=== PATIENT | male | born 1970 | race Caucasian/White ===

== ENCOUNTER 2021-12-22 03:04 | Emergency (ER) | payer MEDICAID, SELFPAY ==
--- NOTE | 2021-12-22 | XR_ITS ---
Patient: SAGAR HERNANDEZ Facility:?[facility] Patient ID:[id number] Site Patient ID:?[id number] Study:?XRay-Hip RT HIP AND PELVIS-12/22/2021 4:00:28 AM Ordering Physician:RAJESH Final Report: INDICATION: Pain. COMPARISON: None available. TECHNIQUE: The right hip was examined with AP and cross-table lateral views. An AP view of the pelvis is obtained for a total of three views. FINDINGS: There is no sign of fracture or dislocation of the right hip. The right femoral head and acetabulum are in anatomic alignment. There is no sign of degenerative disease of the right hip. The left hip is unremarkable. The SI joints and pubic symphysis are normal in appearance. The rest of the bony pelvis and soft tissues are normal in appearance. IMPRESSION: Normal right hip and pelvis. Dictated by Brian Christopher MD @ 12/22/2021 5:33:17 AM Signed by:?Brian Christopher MD @12/22/2021 5:33:17 AM (Electronic Signature)
--- NOTE | 2021-12-22 | XR_ITS ---
Patient: SAGAR HERNANDEZ Facility:?[facility] Patient ID:?[id number] Site Patient ID:?[id number] Study:?XRay-Spine LUMBAR-12/22/2021 4:01:55 AM Ordering Physician:RAJESH Final Report: HISTORY: Low-back pain. COMPARISON: None available. FINDINGS: The lumbar spine was examined with AP and lateral views for a total of two views. There is mild anterior wedging of the L4 vertebral body. This could be a mild compression fracture of uncertain age. There is no paraspinous soft tissue swelling to suggest that this is an acute fracture. The rest of the vertebral bodies are normal in height and they are in anatomic alignment. The disc spaces are normal in height. The visualized bony pelvis and bowel gas pattern are normal in appearance. IMPRESSION: Mild anterior wedging of the L4 vertebral body, possible mild compression fracture of indeterminate age. Dictated by Brian Christopher MD @ 12/22/2021 5:35:08 AM Signed by:?Brian Christopher MD @12/22/2021 5:35:08 AM (Electronic Signature)
[2021-12-22 04:45] VITALS: BP 159/90; PULSE 94; RESP 16; TEMP 36.6; O2SAT 98; BMI 43.0
--- NOTE | 2021-12-22 06:50 | ED.LOWEXIN ---
HPI - Extremity Injury (Lower) General Date Seen: 12/22/21 Chief Complaint: Hip Injury/Pain Source: patient, RN notes reviewed and old records reviewed Mode of arrival: ambulatory Limitations: no limitations History of Present Illness HPI Narrative: Joseph is a very pleasant 51-year-old gentleman with diet-controlled diabetes, hyperlipidemia, obesity who comes to the emergency room for evaluation regarding right hip pain. Patient notes the onset of right hip pain on a ThursdayDecember 20. He cannot recall any specific injury including fall that may have caused this although he states that 2 days previous to that [place] walks more than he has walked in the long time. He shows the pain to be in the right buttock and upper hip. He states that when he is at rest and slightly sitting up he has no pain. But with any weight-bearing the pain increases to 7/10. He has not taken anything for this pain. He notes that earlier in the evening his grandson touch does leg any felt like it did not feel the same as when he would touch the left side. He has not lost bowel or bladder control. He has ongoing issues with bladder emptying and dribbling but this is not occurring at the same time as this injury. Patient denies a fever. He does no radiation of the pain into the groin when walking. Occasionally he can feel a sensation down his right leg but does not describe it as painful. He states that the bottom of both of his feet are affected with peripheral neuropathy. Related Data Home Medications Medication Instructions Recorded Confirmed No Known Home Medications 12/22/21 12/22/21 Allergies Allergy/AdvReac Type Severity Reaction Status Date / Time Penicillin Allergy Intermediate unknown Uncoded 12/12/21 08:18 Acetaminophen Allergy Unknown nausea Uncoded 12/12/21 08:18 Codeine Allergy Unknown upset Uncoded 12/12/21 08:18 stomach Hydrocodone Allergy Unknown nausea Uncoded 12/12/21 08:18 Tetanus toxoid Allergy Unknown unknown Uncoded 12/12/21 08:18 Review of Systems Status of ROS: Reports: 10 or more systems reviewed and unremarkable except as noted in History and below Const: Denies: fever or chills ENMT: Denies: difficulty swallowing Cardio: Denies: chest pain Resp: Reports: other (Sleep apnea) GI: Denies: abdominal pain, nausea, vomiting, diarrhea, constipation or difficulty swallowing : Reports: urinary urgency (Chronic); Denies: painful urination Musculo: Denies: back pain [facility] Medical History Diabetes type 2, controlled History of attention deficit hyperactivity disorder (ADHD) History of depression History of migraine headaches History of renal calculi Surgical History History of arthroscopy of left knee History of foot surgery History of open reduction and internal fixation (ORIF) procedure (2006) Family History Other Diabetes Social History Smoking Status: Current some day smoker Do you use any of these nicotine containing products: Vaping Products How often do you have a drink containing alcohol: monthly or less AUDIT-C Alcohol total score: 1 Non-prescribed substance use: marijuana (any form) Exam Narrative: Exam Narrative: Patient is alert and oriented. Very pleasant gentleman. Oral cavity with moist mucous membranes Heart with regular rate and rhythm. Lungs are clear to auscultation. Abdomen is obese soft no tenderness. Palpation over the right hip superior to the greater trochanter shows discomfort. No pain with palpation over lumbar spine. Straight leg raise is without discomfort however rotation of the hip as well as abduction of the hip increases pain. Distally patient has full strength and motor at the hip flexors knee extensors knee flexors ankle and great toe Tan and plantar flexion. Const: Vital Signs, click to edit/add: Vital Signs - 24 hr 12/22/21 04:45 Temperature 97.8 F Pulse Rate [Left P ulse Oximeter] 94 Respiratory Rate 16 Blood Pressure [Le ft Upper Arm] 159/90 H Pulse Oximetry 98 Oxygen Delivery Me thod Room Air Documenting provider has reviewed patient's vital signs: yes Course Vital Signs Vital signs: Initial Vital Signs Temperature 97.8 F 12/22/21 04:45 Temperature Source Temporal Artery Scan 12/22/21 04:45 Pulse Rate 94 12/22/21 04:45 Pulse Rhythm 12/22/21 04:45 Respiratory Rate 16 12/22/21 04:45 Blood Pressure 159/90 H 12/22/21 04:45 Blood Pressure Mean 113 12/22/21 04:45 Blood Pressure Position Sitting 12/22/21 04:45 Pulse Oximetry 98 12/22/21 04:45 Oxygen Delivery Method 12/22/21 04:45 Vital Signs Temperature 97.8 F 12/22/21 04:45 Pulse Rate 94 12/22/21 04:45 Respiratory Rate 16 12/22/21 04:45 Blood Pressure 159/90 H 12/22/21 04:45 Pulse Oximetry 98 12/22/21 04:45 Oxygen Delivery Method 12/22/21 04:45 Temperature 97.8 F 12/22/21 04:45 Pulse Rate 94 12/22/21 04:45 Respiratory Rate 16 12/22/21 04:45 Blood Pressure 159/90 H 12/22/21 04:45 Pulse Oximetry 98 12/22/21 04:45 Oxygen Delivery Method 12/22/21 04:45 MDM - Extremity Injury (Lower) MDM Narrative Medical decision making narrative: 1. Right hip pain-this appears to be muscular but cannot rule out possibility of joint pain given patient's increased discomfort with standing. X-rays at this time are reassuring with no evidence of acute findings. Will treat patient's pain with a 3 day course of prednisone 20 mg p.o. b.i.d.. He is aware that his blood sugars will likely rise with this medication. Will also give him a small number of [place] tablets so that he is able to sleep. [place] 5/325 1-2 PE 0 q.4-6 hours p.r.n. 6. With no refills via [email or web address] med[facility]. 2. Disposition-patient is discharged and is instructed to follow-up with his primary MD. He may need physical therapy or if he has worsening symptoms an MRI. If he has had the sudden onset of fever chills vomiting and increasing pain he will return here to the emergency room. Note radiological read was delayed and done after patient departure. Questionable L4 mild compression fracture. Patient has no back pain and no recent injury. He has palpable discomfort over the right buttock and superior hip area. Do not think this discomfort is related to a potential compression fracture. Medical Records Attestation: I reviewed the patient's medical records. Imaging Data Right hip, pelvis, lumbar spine: Attestation: I have reviewed the pertinent imaging results. My impression: No acute findings Radiologist's impression: Normal right hip and pelvis. The lumbar spine was examined with AP and lateral views for a total of two views. There is mild anterior wedging of the L4 vertebral body. This could be a mild compression fracture of uncertain age. There is no paraspinous soft tissue swelling to suggest that this is an acute fracture. The rest of the vertebral bodies are normal in height and they are in anatomic alignment. The disc spaces are normal in height. The visualized bony pelvis and bowel gas pattern are normal in appearance. IMPRESSION: Mild anterior wedging of the L4 vertebral body, possible mild compression fracture of indeterminate age. Discharge Plan Discharge Prescriptions: No Action No Known Home Medications Follow Up/Referrals: Mitul Wayne MD [Primary Care Provider] -
== END 2021-12-22 04:50 | disposition home or self-care (01) ==
PROVIDERS: Emergency Provider Family Medicine; PCP Family Medicine
DX: M25.551 Pain in right hip (principal); E13.42 Other specified diabetes mellitus with diabetic polyneuropathy
CPT/HCPCS: 72100; 73502; 99283; 99284

== ENCOUNTER 2022-01-06 13:35 | Outpatient (CLI) | payer MEDICAID, SELFPAY ==
[2022-01-06] MEDS: PERFLUTREN LIPID MICROSPHERES 2 ML VIAL IV (15:47)
== END 2022-01-06 13:36 | disposition home or self-care (01) ==
PROVIDERS: PCP Family Medicine; Visit Provider Internal Medicine Cardiovascular Disease
DX: R01.1 Cardiac murmur, unspecified (principal); I35.1 Nonrheumatic aortic (valve) insufficiency; I34.0 Nonrheumatic mitral (valve) insufficiency
CPT/HCPCS: 93306; Q9957

== ENCOUNTER 2022-02-21 10:49 | Outpatient (CLI) | payer MEDICAID, SELFPAY ==
[2022-02-21 11:50] LABS: Creatinine Urine 53.3 mg/dL
[2022-02-21 11:54] LABS: Microalbumin Creatinine Ratio 10 mg/g (0-30); Microalbumin Urine 1 mg/dL
== END 2022-02-21 10:50 | disposition home or self-care (01) ==
PROVIDERS: PCP Family Medicine; Visit Provider Family Medicine
DX: E11.9 Type 2 diabetes mellitus without complications (principal); E66.01 Morbid (severe) obesity due to excess calories; F41.9 Anxiety disorder, unspecified
CPT/HCPCS: 82043; 82570

== ENCOUNTER 2022-02-27 10:51 | Outpatient (CLI) | payer MEDICAID, SELFPAY ==
[2022-02-27 16:48] LABS: Albumin* 4.8 g/dL (3.3-5.0); Chloride* 104 mmol/L (96-114); Potassium* 4.7 mmol/L (3.6-5.1); Sodium* 138 mmol/L (135-149)
[2022-02-27 16:50] LABS: Carbon Dioxide* 28 mmol/L (20-32); Cholesterol* 186 mg/dL (90-199); Creatinine* 0.8 mg/dL (0.5-1.5); Estimated Glomerular Filt Rate 105 ml/min
[2022-02-27 16:51] LABS: Alanine Aminotransferase* 35 U/L (4-50); Alkaline Phosphatase* 79 U/L (40-150); Aspartate Amino Transferase* 30 U/L (12-35); Bilirubin Total* 1.5 mg/dL (0.1-1.5); Blood Urea Nitrogen* 19 mg/dL (7-30); Calcium* 9.3 mg/dL (8.4-10.6); Glucose* 107 mg/dL (60-115); Total Protein* 7.3 g/dL (6.0-8.3); Triglycerides* 79 mg/dL (40-149)
[2022-02-27 16:52] LABS: HDL Cholesterol* 66 mg/dL (>=40); LDL Cholesterol Calculated 104 mg/dL (<100)
== END 2022-02-27 10:52 | disposition home or self-care (01) ==
PROVIDERS: PCP Family Medicine; Visit Provider Family Medicine
DX: R53.83 Other fatigue (principal); E11.9 Type 2 diabetes mellitus without complications; E78.5 Hyperlipidemia, unspecified; I10 Essential (primary) hypertension
CPT/HCPCS: 80053; 80061

== ENCOUNTER 2022-04-16 14:09 | Outpatient (CLI) | payer MEDICAID, SELFPAY ==
[2022-04-16 15:00] LABS: Chloride* 101 mmol/L (96-114); Sodium* 137 mmol/L (135-149)
[2022-04-16 15:01] LABS: Potassium* 4.2 mmol/L (3.6-5.1)
[2022-04-16 15:03] LABS: Creatinine* 0.7 mg/dL (0.5-1.5); Estimated Glomerular Filt Rate 110 ml/min
[2022-04-16 15:04] LABS: Blood Urea Nitrogen* 12 mg/dL (7-30); Carbon Dioxide* 29 mmol/L (20-32); Glucose* 142 mg/dL (60-115)
== END 2022-04-16 14:10 | disposition home or self-care (01) ==
LOC: NFLDREF 14:10
PROVIDERS: PCP Family Medicine; Visit Provider Family Medicine
DX: R07.89 Other chest pain (principal)
CPT/HCPCS: 80048

== ENCOUNTER 2022-04-16 14:42 | Emergency (ER) | payer MEDICAID, SELFPAY ==
[2022-04-16] VITALS (19 sets, daily range): BP systolic 126–143; BP diastolic 63–73; PULSE 59–68; RESP 18; TEMP 36.6; O2SAT 94–97; BMI 41.4
--- NOTE | 2022-04-16 15:36 | ED.CHESTPAIN ---
HPI - Chest Pain General Chief Complaint: Chest Pain Stated Complaint: chest pain, abnormal EKG Time Seen by Provider: 04/16/22 14:45 History of Present Illness HPI narrative: 52-year-old man presenting to the emergency department after being seen in clinic for chest and back pain. There were some concerns about EKG changes between 2020 and today with suspicion of developed junctional rhythm it looks like and by my read there looks to have been some inversion or at least marked flattening of the lateral leads for the T-wave; leads 5 and 6. He does have a history of aortic stenosis and is anticipating surgery for this. Over the last 2 or 3 days has had fairly constant chest discomfort at times feeling like there was a hole in his chest. A week ago was seen for chest pain lasting about 10-15 minutes were EMS was called but spontaneously resolved and apparently without EKG changes, was not seen. He also has had evolution of back pain without radicular symptoms. This has been going on for the same time. Sounds like it was exacerbated few days ago driving around on bumpy ice covered roads in his truck. He has no symptoms into the legs or arms. He is increasingly dyspneic both at rest and exertion he says. He had been off of his omeprazole for months prior to a few weeks ago but that was a brief course then off for a few more weeks and took a dose yesterday thinking that maybe heartburn might be related. Did feel chilled last night needing more blankets but did not measure a temperature. He has been struggling with more indigestion lately a lot of belching in stomach sensitivity. Has not been eating as much. Yesterday did have a fairly extensive deep tissue massage for the back discomfort. Related Data Home Medications Medication Instructions Recorded Confirmed ibuprofen 600 mg tablet 600 mg PO PRN 02/21/22 04/16/22 nitroglycerin 0.4 mg sublingual 0.4 mg sublingual PRN 02/21/22 04/16/22 tablet omeprazole 40 mg capsule,delayed 40 mg PO DAILY 02/21/22 04/16/22 release sumatriptan succinate 100 mg tablet 100 mg PO .As Needed as needed PRN 02/21/22 04/16/22 Previous Rx's Medication Instructions Recorded cyclobenzaprine 10 mg tablet 10 mg PO TID PRN muscle spasm #30 04/21/22 tabs Allergies Allergy/AdvReac Type Severity Reaction Status Date / Time acetaminophen [From Tylenol] Allergy Verified 04/16/22 14:53 hydrocodone Allergy Verified 04/16/22 14:53 Penicillins Allergy Verified 04/16/22 14:53 Tetanus Vaccines and Toxoid Allergy Verified 04/16/22 14:53 Review of Systems Status of ROS Reports: 10 or more systems reviewed and unremarkable except as noted in History and below PFS PFS Medical History Diabetes type 2, controlled History of attention deficit hyperactivity disorder (ADHD) History of depression History of migraine headaches History of renal calculi Surgical History History of arthroscopy of left knee History of foot surgery History of open reduction and internal fixation (ORIF) procedure (2006) Family History Other Diabetes Social History Smoking Status: Former smoker Do you use any of these nicotine containing products: None Second hand tobacco smoke exposure: No How often do you have a drink containing alcohol: monthly or less How many standard drinks containing alcohol do you have on a typical day: 1 or 2 AUDIT-C Alcohol total score: 1 Non-prescribed substance use: marijuana (any form) Little interest or pleasure in doing things: more than half the days Feeling down, depressed, or hopeless: not at all service: No Exam Narrative Exam Narrative: Pleasant. NAD. Mild nasopharyngeal congestion. Heart with regular rate and rhythm. There is a holosystolic murmur with radiation into the carotids. It is across the anterior chest. Lungs are clear. There is reproducible tenderness where he says this is the pain I have been having in the right mid back paraspinal musculature. Abdomen is overweight. Soft and maybe a little uncomfortable in the epigastrium. Well perfused peripherally. mild lower extremity dependent edema Const Vital Signs, click to edit/add: Vital Signs - 24 hr 04/16/22 14:53 04/16/22 14:55 04/16/22 15:02 Temperature 97.9 F Pulse Rate 64 62 Pulse Rate [Apical] 61 Respiratory Rate 18 Blood Pressure Blood Pressure [Right Upper Arm] 143/71 H Pulse Oximetry 96 97 96 Oxygen Delivery Method Room Air 04/16/22 15:03 04/16/22 15:15 04/16/22 15:34 Temperature Pulse Rate 64 67 Pulse Rate [Apical] Respiratory Rate Blood Pressure 143/71 H Blood Pressure [Right Upper Arm] Pulse Oximetry 95 95 97 Oxygen Delivery Method 04/16/22 15:30 04/16/22 15:32 04/16/22 15:45 Temperature Pulse Rate 63 66 61 Pulse Rate [Apical] Respiratory Rate Blood Pressure 136/70 Blood Pressure [Right Upper Arm] Pulse Oximetry 97 96 97 Oxygen Delivery Method Documenting provider has reviewed patient's vital signs: yes Course Vital Signs Vital signs: Initial Vital Signs Temperature 97.9 F 04/16/22 14:53 Temperature Source Temporal Artery Scan 04/16/22 14:53 Pulse Rate 61 04/16/22 14:53 Pulse Rhythm 04/16/22 14:53 Respiratory Rate 18 04/16/22 14:53 Blood Pressure 143/71 H 04/16/22 14:53 Blood Pressure Mean 95 04/16/22 14:53 Blood Pressure Position Supine 04/16/22 14:53 Pulse Oximetry 96 04/16/22 14:53 Oxygen Delivery Method 04/16/22 14:53 Vital Signs Temperature 97.9 F 04/16/22 14:53 Pulse Rate 61 04/16/22 14:53 Respiratory Rate 18 04/16/22 14:53 Blood Pressure 143/71 H 04/16/22 14:53 Pulse Oximetry 96 04/16/22 14:53 Oxygen Delivery Method 04/16/22 14:53 Temperature 97.9 F 04/16/22 14:53 Pulse Rate 68 04/16/22 17:51 Respiratory Rate 18 04/16/22 14:53 Blood Pressure 127/63 04/16/22 17:32 Pulse Oximetry 96 04/16/22 17:51 Oxygen Delivery Method 04/16/22 14:53 MDM - Chest Pain MDM Narrative Medical decision making narrative: doesn't feel he needs any treatment. ekg reviewed by me appears unchanged as above from clinic. CXR without acute abnormality. appears to have potentially multiple issues. reproducible back pain, and h/o gerd and has been off medications. ekg changes of uncertain significance. labs reviewed. normal d-dimer suggesting unlikely vascular disruption. I wonder if elevation of CRP related to yesterday's deep tissue massage; no infectious etiology apparent otherwise at this time. Medical Records Data Attestation: I reviewed the patient's medical records. Lab Data Attestation: I reviewed the patient's lab results. Labs: Lab Results 04/16/22 04/16/22 04/16/22 Range/Units 15:02 15:34 15:34 WBC 9.16 (4.50-11.00) K/uL RBC 5.23 (4.30-5.90) m/uL Hgb 14.7 (13.5-17.5) gm/dL Hct 44.1 (37.0-53.0) % MCV 84 (80-100) fL MCH 28 (26-34) pg MCHC 33 (32-36) gm/dL RDW Coeff of Karina 12.8 (11.5-15.5) % Plt Count 194 (140-440) K/uL Neut % (Auto) 70.7 (42.0-72.0) % Lymph % (Auto) 18.9 L (20-44) % [place] % (Auto) 8.2 (0.0-11.0) % Eos % (Auto) 1.2 (0.0-7.0) % Baso % (Auto) 0.1 (0.0-3.0) % Neut # (Auto) 6.48 (1.7-7.0) K/uL Lymph # (Auto) 1.70 (0.90-2.90) K/uL [place] # (Auto) 0.80 (0.00-0.90) K/UL Eos # (Auto) 0.11 (0.00-0.50) K/uL Baso # (Auto) 0.01 (0.00-0.30) K/uL D-Dimer Quant (PE/DVT) 0.46 (0.00-0.50) ug/ml Sodium 135 (135-149) mmol/L Potassium 3.8 (3.6-5.1) mmol/L Chloride 101 (96-114) mmol/L Carbon Dioxide 28 (20-32) mmol/L BUN 12 (7-30) mg/dL Creatinine 0.6 (0.5-1.5) mg/dL Estimated Creat Clear 149.90 Estimated GFR 115 ml/min Glucose 137 H (60-115) mg/dL Calcium 8.6 (8.4-10.6) mg/dL Total Bilirubin 0.9 (0.1-1.5) mg/dL Direct Bilirubin 0.2 (0.0-0.5) mg/dL AST 22 (12-35) U/L ALT 31 (4-50) U/L Alkaline Phosphatase 67 (40-150) U/L Troponin I 0.01 (0.01-0.04) ng/mL C-Reactive Protein 14.7 H (0.5-1.0) mg/dL NT-Pro-B Natriuret Pep 341 pg/mL Total Protein 7.6 (6.0-8.3) g/dL Albumin 4.5 (3.3-5.0) g/dL Urine Color (Yellow) Urine Appearance (Clear) Urine pH (5.0-8.5) Ur Specific [place] (1.000-1.030) Urine Protein (Negative) Urine Glucose (UA) (Negative) Urine Ketones (Negative) Urine Blood (Negative) Urine Nitrite (Negative) Urine Bilirubin (Negative) Urine Urobilinogen (0.2-1.0) Ur Leukocyte Esterase (Negative) Urine RBC (0-2) Urine WBC (0-5) Ur Squamous Epith Cells (None-Few) Urine Bacteria (None) SARS-CoV-2 (PCR) (Negative) Influenza Type A (PCR) (Negative) Influenza Type B (PCR) (Negative) POC Troponin I (0.01-0.04) ng/ml 04/16/22 04/16/22 04/16/22 Range/Units 15:34 15:35 16:50 WBC (4.50-11.00) K/uL RBC (4.30-5.90) m/uL Hgb (13.5-17.5) gm/dL Hct (37.0-53.0) % MCV (80-100) fL MCH (26-34) pg MCHC (32-36) gm/dL RDW Coeff of Karina (11.5-15.5) % Plt Count (140-440) K/uL Neut % (Auto) (42.0-72.0) % Lymph % (Auto) (20-44) % [place] % (Auto) (0.0-11.0) % Eos % (Auto) (0.0-7.0) % Baso % (Auto) (0.0-3.0) % Neut # (Auto) (1.7-7.0) K/uL Lymph # (Auto) (0.90-2.90) K/uL [place] # (Auto) (0.00-0.90) K/UL Eos # (Auto) (0.00-0.50) K/uL Baso # (Auto) (0.00-0.30) K/uL D-Dimer Quant (PE/DVT) (0.00-0.50) ug/ml Sodium (135-149) mmol/L Potassium (3.6-5.1) mmol/L Chloride (96-114) mmol/L Carbon Dioxide (20-32) mmol/L BUN (7-30) mg/dL Creatinine (0.5-1.5) mg/dL Estimated Creat Clear Estimated GFR ml/min Glucose (60-115) mg/dL Calcium (8.4-10.6) mg/dL Total Bilirubin (0.1-1.5) mg/dL Direct Bilirubin (0.0-0.5) mg/dL AST (12-35) U/L ALT (4-50) U/L Alkaline Phosphatase (40-150) U/L Troponin I (0.01-0.04) ng/mL C-Reactive Protein (0.5-1.0) mg/dL NT-Pro-B Natriuret Pep pg/mL Total Protein (6.0-8.3) g/dL Albumin (3.3-5.0) g/dL Urine Color Yellow (Yellow) Urine Appearance Clear (Clear) Urine pH 6.5 (5.0-8.5) Ur Specific [place] 1.015 (1.000-1.030) Urine Protein Negative (Negative) Urine Glucose (UA) Negative (Negative) Urine Ketones Negative (Negative) Urine Blood Trace-intact A (Negative) Urine Nitrite Negative (Negative) Urine Bilirubin Negative (Negative) Urine Urobilinogen 0.2 (0.2-1.0) Ur Leukocyte Esterase Negative (Negative) Urine RBC 0-2 (0-2) Urine WBC 0-2 (0-5) Ur Squamous Epith Cells Few (None-Few) Urine Bacteria None (None) SARS-CoV-2 (PCR) Negative SARS-CoV-2 (Negative) Influenza Type A (PCR) Negative PCR FLU A (Negative) Influenza Type B (PCR) Negative PCR FLU B (Negative) POC Troponin I 0.01 (0.01-0.04) ng/ml Discharge Plan Discharge Clinical Impression: Indigestion, Chest pain, Musculoskeletal back pain Patient Disposition: Home, Self-Care Condition: Stable Additional Instructions: I would take it easy with your diet over the next few days. Maybe soup broths, thicker soups, smoothies. Rice. [place]. Straight water on an aggravated stomach, an empty stomach, I think can be more irritating. Do focus on hydration. I would restart your omeprazole and take it daily for 2 weeks and reassess. For breakthrough gas or indigestion, might try liquid antacid/anti-gas or medications like famotidine. Otherwise return for increasingly persistent chest pain, new and focal weakness, persistent and increasing shortness of breath, associated lightheadedness. See handout for exercises for your back you might want to try, going through them once or twice daily going forward. Prescriptions: No Action sumatriptan succinate 100 mg tablet 100 mg PO .As Needed as needed PRN Rx Instructions: ONE TAB AT ONSET OF HEADACHE, MAY REPEAT ONCE IN 2 HRS, MAX 200 MG/24 HRS nitroglycerin 0.4 mg tablet, sublingual 0.4 mg sublingual PRN omeprazole 40 mg capsule,delayed release(DR/EC) 40 mg PO DAILY ibuprofen 600 mg tablet 600 mg PO PRN cyclobenzaprine 10 mg tablet 10 mg PO TID PRN (Reason: muscle spasm) Qty: 30 0RF Follow Up/Referrals: Mitul Wayne MD [Primary Care Provider] - Stand Alone Forms: [facility] [employer] Info Instructions
[2022-04-16 15:38] LABS: Troponin, Point-of-Care* 0.01 ng/ml (0.01-0.04)
[2022-04-16 15:57] LABS: Albumin* 4.5 g/dL (3.3-5.0); Chloride* 101 mmol/L (96-114)
[2022-04-16 15:58] LABS: Sodium* 135 mmol/L (135-149)
[2022-04-16 15:59] LABS: Potassium* 3.8 mmol/L (3.6-5.1)
[2022-04-16 16:01] LABS: Alanine Aminotransferase* 31 U/L (4-50); Alkaline Phosphatase* 67 U/L (40-150); Aspartate Amino Transferase* 22 U/L (12-35); Bilirubin Direct* 0.2 mg/dL (0.0-0.5); Bilirubin Total* 0.9 mg/dL (0.1-1.5); Blood Urea Nitrogen* 12 mg/dL (7-30); Glucose* 137 mg/dL (60-115); Total Protein* 7.6 g/dL (6.0-8.3)
[2022-04-16 16:02] LABS: Basophils Absolute Auto 0.01 K/uL (0.00-0.30); Basophils Percent Auto 0.1 % (0.0-3.0); Calcium* 8.6 mg/dL (8.4-10.6); Eosinophils Absolute Auto 0.11 K/uL (0.00-0.50); Eosinophils Percent Auto 1.2 % (0.0-7.0); Hematocrit 44.1 % (37.0-53.0); Hemoglobin* 14.7 gm/dL (13.5-17.5); Immature Granulocytes Abs Auto 0.08 K/uL (0.00-0.30); Immature Granulocytes Pct Auto 0.9 %; Lymphocytes Percent Auto 18.9 % (20-44); Mean Corpuscular HGB Conc 33 gm/dL (32-36); Mean Corpuscular Hemoglobin 28 pg (26-34); Mean Corpuscular Volume 84 fL (80-100); Monocytes Percent Auto 8.2 % (0.0-11.0); Neutrophils Absolute Auto 6.48 K/uL (1.7-7.0); Neutrophils Percent Auto 70.7 % (42.0-72.0); Platelet Count* 194 K/uL (140-440); RDW Coefficient of Variation % 12.8 % (11.5-15.5); Red Blood Count 5.23 m/uL (4.30-5.90); White Blood Count* 9.16 K/uL (4.50-11.00)
[2022-04-16 16:02] LABS: Appearance Urine Clear (Clear); Bilirubin Urine Negative (Negative); Blood Urine Trace-intact (Negative); Color Urine Yellow (Yellow); Glucose Urine Negative (Negative); Ketones Urine Negative (Negative); Leukocyte Esterase Urine Negative (Negative); Nitrite Urine Negative (Negative); Protein Urine Negative (Negative); Specific Gravity Urine 1.015 (1.000-1.030); Urobilinogen Urine 0.2 (0.2-1.0); pH Urine 6.5 (5.0-8.5)
[2022-04-16 16:06] LABS: Slide Review Reflex No
[2022-04-16 16:13] LABS: Troponin I* 0.01 ng/mL (0.01-0.04)
[2022-04-16 16:18] LABS: RBC Urine 0-2 (0-2); Squamous Epithelial Cell Urine Few (None-Few); WBC Urine 0-2 (0-5)
[2022-04-16 16:24] LABS: C Reactive Protein* 14.7 mg/dL (0.5-1.0); NT Pro B Type NatriureticPept* 341 pg/mL
[2022-04-16 16:35] LABS: Carbon Dioxide* 28 mmol/L (20-32); Creatinine* 0.6 mg/dL (0.5-1.5); Estimated Glomerular Filt Rate 115 ml/min
[2022-04-16 16:45] LABS: D Dimer Quantitative* 0.46 ug/ml (0.00-0.50)
[2022-04-16 18:28] LABS: PCR FLU A Negative PCR FLU A (Negative); PCR FLU B Negative PCR FLU B (Negative)
[2022-04-16 18:38] LABS: SARS PCR* Negative SARS-CoV-2 (Negative)
== END 2022-04-16 18:05 | disposition home or self-care (01) ==
PROVIDERS: Emergency Provider Family Medicine; PCP Family Medicine
DX: R07.89 Other chest pain (principal); K30 Functional dyspepsia; M54.9 Dorsalgia, unspecified
CPT/HCPCS: 36415; 80048; 80076; 81001; 83880; 84484; 85025; 85379; 86140; 87631; 93005; 94761; 99284

== ENCOUNTER 2022-04-24 08:03 | Outpatient (CLI) | payer MEDICAID, SELFPAY ==
[2022-04-24 11:24] LABS: Albumin* 4.5 g/dL (3.3-5.0); Chloride* 108 mmol/L (96-114); Potassium* 4.5 mmol/L (3.6-5.1); Sodium* 141 mmol/L (135-149)
[2022-04-24 11:27] LABS: Alanine Aminotransferase* 40 U/L (4-50); Alkaline Phosphatase* 79 U/L (40-150); Aspartate Amino Transferase* 30 U/L (12-35); Bilirubin Total* 0.7 mg/dL (0.1-1.5); Blood Urea Nitrogen* 17 mg/dL (7-30); Calcium* 8.6 mg/dL (8.4-10.6); Carbon Dioxide* 24 mmol/L (20-32); Creatinine* 0.7 mg/dL (0.5-1.5); Estimated Glomerular Filt Rate 110 ml/min; Glucose* 138 mg/dL (60-115); Total Protein* 7.2 g/dL (6.0-8.3)
== END 2022-04-24 08:04 | disposition home or self-care (01) ==
PROVIDERS: PCP Family Medicine; Visit Provider Family Medicine
DX: Z01.818 Encounter for other preprocedural examination (principal)
CPT/HCPCS: 80053; 86850; 86900; 86901

== ENCOUNTER 2022-05-15 13:34 | Outpatient (CLI) | payer MEDICAID, SELFPAY | END 2022-05-15 13:35 | disposition home or self-care (01) | LOC: NFLDREF 13:42 | PROVIDERS: PCP Family Medicine; Visit Provider Family Medicine | DX: E87.1 Hypo-osmolality and hyponatremia (principal); E11.9 Type 2 diabetes mellitus without complications; Z95.2 Presence of prosthetic heart valve | CPT/HCPCS: 80048 ==

== ENCOUNTER 2022-05-18 10:19 | Emergency (ER) | payer MEDICAID, SELFPAY ==
[2022-05-18 10:22] VITALS: BP 164/93; PULSE 96; RESP 18; TEMP 36.9; O2SAT 96; BMI 39.6
--- NOTE | 2022-05-18 10:51 | ED_ITS ---
HPI - General Adult General Chief complaint: Constipation Stated complaint: No bowel movement post surgical a week ago Time Seen by Provider: 05/18/22 10:44 History of Present Illness HPI narrative: This 52-year-old male comes in reporting constipation status post open heart surgery. He had his chest opened 6 days ago. He states that he did have a bowel movement 2 days ago and again just upon arrival here. He did use a suppository this morning. He states that he has been eating 3 meals a day and feels that he has lots of stool in his abdomen. He is taking narcotics for pain relief status post surgery. He does not report any nausea or vomiting. He states that he has been taking senna at night but no other oral medicines to manage his bowels. Related Data Home Medications Medication Instructions Recorded Confirmed nitroglycerin 0.4 mg sublingual 0.4 mg sublingual Q5M PRN 02/21/22 05/18/22 tablet sumatriptan succinate 100 mg tablet 100 mg PO .As Needed as needed PRN 02/21/22 05/18/22 methocarbamol 500 mg tablet 500 mg PO QDAY 05/15/22 05/18/22 metoprolol tartrate 50 mg tablet 50 mg PO BID 05/15/22 05/18/22 sennosides 8.6 mg-docusate sodium 1 - 4 tab PO QHS 05/15/22 05/18/22 50 mg tablet (Senexon-S) warfarin 2.5 mg tablet 5 mg PO QDAY 05/15/22 05/18/22 Previous Rx's Medication Instructions Recorded cyclobenzaprine 10 mg tablet 10 mg PO TID PRN muscle spasm #30 04/21/22 tabs blood pressure monitor #1 ea 05/15/22 omeprazole 40 mg capsule,delayed 40 mg PO DAILY #30 caps 05/15/22 release oxycodone 5 mg tablet 5 - 10 mg PO Q6H PRN pain #60 tabs 05/15/22 Allergies Allergy/AdvReac Type Severity Reaction Status Date / Time acetaminophen [From Tylenol] Allergy Verified 05/18/22 10:27 hydrocodone Allergy Verified 05/18/22 10:27 Penicillins Allergy Verified 05/18/22 10:27 Tetanus Vaccines and Toxoid Allergy Verified 05/18/22 10:27 Review of Systems Status of ROS: Reports: 10 or more systems reviewed and unremarkable except as noted in History and below Narrative: Constitutional: No fevers, no weight gain or loss. Eyes: No discharge. No vision changes. HENT: No congestion, no sore throat, no ear pain. Cardiovascular: No palpitations. Recent open heart surgery. Respiratory: No shortness of breath, no wheezes, no cough. Gastrointestinal: No abdominal pain, no vomiting, no diarrhea. He reports constipation. Genitourinary: No dysuria, no hematuria. Musculoskeletal: Normal range of motion. Skin: No rashes, no pruritis. Neurological: No dizziness, weakness, sensory change, speech change. Endo/Heme/Allergies: No bruising or bleeding. No polydipsia. Pysch: no suicidality, no anxiety, no insomnia. All other systems reviewed and are negative. [facility] Medical History (Updated 05/18/22 @ 12:36 by Oziel Peace MD) Atypical chest pain (04/16/22) Calculus of kidney Cocaine dependence in remission (01/20/15) History of attention deficit hyperactivity disorder (ADHD) Insomnia (01/20/15) Musculoskeletal back pain (04/16/22) Plantar fasciitis, bilateral (12/22/13) Vitamin D deficiency (04/11/15) Surgical History (Updated 05/15/22 @ 13:34 by Mitul Wayne MD) History of arthroscopy of left knee History of colonoscopy (08/16/21) History of foot surgery History of open reduction and internal fixation (ORIF) procedure (2006) Family History (Updated 04/30/22 @ 13:44 by Natali Herring) Father Glaucoma Other Diabetes Social History Smoking Status: Former smoker Do you use any of these nicotine containing products: None Second hand tobacco smoke exposure: No How often do you have a drink containing alcohol: monthly or less How many standard drinks containing alcohol do you have on a typical day: 1 or 2 AUDIT-C Alcohol total score: 1 Non-prescribed substance use: marijuana (any form) Little interest or pleasure in doing things: more than half the days Feeling down, depressed, or hopeless: not at all service: No Exam Narrative: Exam Narrative: Constitutional: Well-developed, well-nourished, no acute distress. HEENT: Normocephalic, atraumatic. Neck: Normal range of motion. Nontender. Supple. Heart: Regular. No murmurs. Normal rate. Intact distal pulses. Chest: Surgical scar is healing properly without sign of infection. Lungs: Clear to auscultation. No chest discomfort. No wheezes, rhonchi, or rales. Abdomen: Normal bowel sounds. Nontender. No rebound tenderness. Genitalia: Deferred. Back: No midline tenderness. Normal range of motion. Extremities: Normal range of motion. No injury. Skin: Intact. No rash. Warm. No erythema or pallor. Neurologic: No altered sensation. No weakness. Alert and oriented. Psychiatric: No suicidality. No anxiety or depression. No insomnia. Nursing notes and vitals signs are reviewed. Const: Vital Signs, click to edit/add: Vital Signs - 24 hr 05/18/22 10:22 Temperature 98.5 F Pulse Rate [Right Pulse Oximeter] 96 Respiratory Rate 18 Blood Pressure [Ri ght Upper Arm] 164/93 H Pulse Oximetry 96 Oxygen Delivery Me thod Room Air Course Vital Signs Vital signs: Initial Vital Signs Temperature 98.5 F 05/18/22 10:22 Temperature Source Temporal Artery Scan 05/18/22 10:22 Pulse Rate 96 05/18/22 10:22 Respiratory Rate 18 05/18/22 10:22 Blood Pressure 164/93 H 05/18/22 10:22 Blood Pressure Mean 116 05/18/22 10:22 Blood Pressure Position Sitting 05/18/22 10:22 Pulse Oximetry 96 05/18/22 10:22 Oxygen Delivery Method 05/18/22 10:22 Vital Signs Temperature 98.5 F 05/18/22 10:22 Pulse Rate 96 05/18/22 10:22 Respiratory Rate 18 05/18/22 10:22 Blood Pressure 164/93 H 05/18/22 10:22 Pulse Oximetry 96 05/18/22 10:22 Oxygen Delivery Method 05/18/22 10:22 Temperature 98.5 F 05/18/22 10:22 Pulse Rate 96 05/18/22 10:22 Respiratory Rate 18 05/18/22 10:22 Blood Pressure 164/93 H 05/18/22 10:22 Pulse Oximetry 96 05/18/22 10:22 Oxygen Delivery Method 05/18/22 10:22 Medical Decision Making MDM Narrative Medical decision making narrative: This patient comes in with constipation symptoms related to recent surgery and subsequent opiate use for pain relief. He did receive a pink lady enema here which brought good results. I did review djbj-kga-peaxiyn medicines that can be used to help with ongoing symptoms and encouraged him to wean off of the opiates which are likely the main cause of this problem. Discharge Plan Discharge Clinical Impression: Constipation Patient Disposition: Home, Self-Care Condition: Improved Additional Instructions: Use lgbe-lwx-mzkhhtk medicines as needed and directed for managing bowel function. Use Metamucil, MiraLax, Dulcolax, senna, suppositories, and enemas as needed and directed. Return if worsening. Prescriptions: No Action warfarin 2.5 mg tablet 5 mg PO QDAY metoprolol tartrate 50 mg tablet 50 mg PO BID sennosides-docusate sodium [Senexon-S] 8.6-50 mg tablet 1 - 4 tab PO QHS methocarbamol 500 mg tablet 500 mg PO QDAY omeprazole 40 mg capsule,delayed release(DR/EC) 40 mg PO DAILY Qty: 30 11RF oxycodone 5 mg tablet 5 - 10 mg PO Q6H PRN (Reason: pain) Qty: 60 0RF (DME) blood pressure monitor Kit See Rx Instructions .ROUTE .MEDSUPPLY Qty: 1 0RF Rx Instructions: As directed sumatriptan succinate 100 mg tablet 100 mg PO .As Needed as needed PRN Rx Instructions: ONE TAB AT ONSET OF HEADACHE, MAY REPEAT ONCE IN 2 HRS, MAX 200 MG/24 HRS nitroglycerin 0.4 mg tablet, sublingual 0.4 mg sublingual Q5M PRN cyclobenzaprine 10 mg tablet 10 mg PO TID PRN (Reason: muscle spasm) Qty: 30 0RF Follow Up/Referrals: Mitul Wayne MD [Primary Care Provider] - Stand Alone Forms: [employer] Info Instructions
[2022-05-18] MEDS: DOC/MIN OIL/MAG CIT/SOD PHOS 376 ML ENEMA PR (11:10)
== END 2022-05-18 12:42 | disposition home or self-care (01) ==
PROVIDERS: Emergency Provider Emergency Medicine Emergency Medical Services; PCP Family Medicine
DX: K59.00 Constipation, unspecified (principal)
CPT/HCPCS: 99283; 99284

== ENCOUNTER 2022-05-20 08:32 | Outpatient (CLI) | payer MEDICAID, SELFPAY ==
[2022-05-20 09:37] LABS: Prothrombin Time 23.7 Seconds
== END 2022-05-20 08:33 | disposition home or self-care (01) ==
PROVIDERS: PCP Family Medicine; Visit Provider Family Medicine
DX: Z95.2 Presence of prosthetic heart valve (principal)
CPT/HCPCS: 85610

== ENCOUNTER 2022-05-28 07:35 | Outpatient (CLI) | payer MEDICAID, SELFPAY ==
--- OUTSIDE RECORDS SUMMARY | 2022-05-30 01:45 | XMS_ITS | Continuity of Care Document ---
:1970 Author Organization [facility] Address [address] [place] [phone] Phone Care Team Providers Name Role Phone Luis Clemons MD Unavailable Unavailable Advance Directives Directive Yes / No Effective Date File Name No Information Encounters Encounter Practice Location Reason(s) Diagnoses Date Provider Provide rs Description For Visit Copied on Encounter [facility] [place] No Kaci [facility] Information -2022 Luis. [employer] [place], [address] [place] [id number] [place] [address], [facility] [id number], [place], [place], [id number], tel:[phone] tel:[phone] Family History Family Member Type Diagnosis Age At Onset No Information Payers Payer name Insurance type Covered green party ID Authorization(s ) No Information Social History Type Description Quantity Date Captured Comments Sex Male Smoking Status No Information Chief Complaint And Reason For Visit No Information Reason For Referral Reason For Referral No Information Plan Of Treatment Date Type Action Status Appointment Joseph Moseley BOOKED History Of Present Illness Encounter Date Complaint History Of Present I llness No Information Functional Status Date Functional Assessment No Information Instructions Date Instruction Additional Informati on No Information Assessments Type Assessment Date No Information Patient Care Teams Name Effective Dates (start - stop) Status M dion No Information
--- OUTSIDE RECORDS SUMMARY | 2022-05-30 01:45 | XMS_ITS | Continuity of Care Document ---
:1970 Author Organization [facility] Address [address] [place] [address] Phone Care Team Providers Name Role Phone Will Fran SEVILLA Unavailable Unavailable Allergies, Adverse Reactions, Alerts Substance Reaction Status Criticality Penicillins Active No Information Medications Medication Instructions Dosage Effective Dates Status Comment s (start - stop) omeprazole 40 mg take 1 capsule by oral 40 MG - Active capsule,delayed route every day before release a meal Procedures Procedure Date OFFICE/OUTPATIENT VISIT, EST INJECT SPINE C/T-Office Surgical trays Betamethasone acet&sod phosp Omnipaque 240 50ml Omnipaque 240 Per 50ml OFFICE/OUTPATIENT VISIT, EST OFFICE CONSULTATION Advance Directives Directive Yes / No Effective Date File Name No Information Encounters Encounter Practice Location Reason(s) Diagnoses Date Provider Provide rs Description For Visit Copied on Encounter Twin [place]ain No Information [facility] Fran. Pain Pain [address] [facility], Clinic [place], [address] [place], [place], [place], [id number], [place], [place]. [id number] tel:[phone] , [place] [id number] tel: [phone] OFFICE/OUTPATI Twin Twin low back CervicalgiaLow Debary Referring ENT VISIT, [facility] pain back [place]. Provider: Pain Pain (chief painSpondylosis 6 [address] [facility], Clinic complaint) w/o myelopathy Yancy De La Garza , [address] [place] [place] Clint De La Garza, radiculopathy, [place], [place], [place], cervical [address], [place]. Clinic [address] [place], regionMyalgia tel: [place] [phone], , [place], tel:+ [place], [phone] tel:[phone] [facility] Cervicalgia Will Referring [facility] Fran. Provider: Pain Pain 6 [address] [facility], Clinic FredericYancy, [address] [place] Clint De La Garza, [place], [place], Health [place], [id number], Clinic [address] [place], [place]. [place] [id number] tel: AVE W, , [place] [id number] [place], tel: [place], [phone]. [phone] tel:[phone] OFFICE/OUTPATI [facility] low back CervicalgiaLow Debary Referring ENT VISIT, [facility] pain back pain [place]. Provide r: Pain Pain (chief 6 [address] [facility], Clinic complaint) Yancy De La Garza, [address] [place] De [place]za, [place], [place], Health [place], [address], [place]. Clinic [address] [place], tel: [place] [phone], , [place], tel: [place], [phone]. [phone] tel:[phone] OFFICE [facility] [place] low back CervicalgiaLow Cinda Referri ng CONSULTATION [facility] pain back pain 3 [place]. [address] Provid er: Pain Pain (chief 6 [facility] [place], Clinic complaint) [place], [place], [address] [place] [id number], Clint De La Garza, [place]. Health [place], tel: Clinic [address] [place], [id number] [phone], , [place], tel:+ [place], [phone]. [phone] tel:[phone] Family History Family Member Type Diagnosis Age At Onset No Information Payers Payer name Insurance type Covered green party ID Authorization(s ) [employer] [place] [id number] Social History Type Description Quantity Date Captured Comments Sex Male Smoking Status No Information Chief Complaint And Reason For Visit No Information Reason For Referral Reason For Referral No Information Plan Of Treatment Date Type Action Status No Information History Of Present Illness Encounter Date Complaint History Of Present I llness low back pain (comments) Joseph is here f or follow up. Reports 60% pain relief with the left [place] C7-T1 RODDY on 08/27. Reports that for a w [place] after the RODDY, he had a really bad headach e. He only took duloxetine for sever al days but stopped because pain relief wasn't significant. Continues going to [facility] chiropractor three times a week. low back pain Severity level is 8- 9. Duration: chronic. The problem is fluctuati ng. It occurs intermittently. Loca tion of pain is middle back, lower back and neck.The patient describes the pain a s an ache. Symptoms are aggravated by daily activities, standing and working. Symptoms ar e relieved by lying down, physical therapy and rest. low back pain (comments) Joseph is here f or a f/u regarding his lower back pain. Patient s tates he has lower back and neck pain, and r adicular pain in bilateral arms. Letty ent started PT, and is interested in cervic al RODDY. He is also interested in medica tion to help him until the RODDY. No other co ncerns today. low back pain Severity level is 8. Duration: chronic. The problem is fluctuati ng. It occurs intermittently. Loca tion of pain is lower back and neck. Pain is radiated to the left arm and right arm.Th e patient describes the pain as an ache and sharp. Symptoms are aggravated by bendin g, daily activities, standing and working . low back pain (comments) Joseph is referr ed here by Dr. Hummel from [facility].St metz comes to [facility] for different options fo r managing his pain, as he has tried multipl e medications in the past that have not been h elpful. His main complaint it low yady k, and neck pain. He also has had foot pain si nce he was a child.He is unable to say when h is pain began, as he has had this for years. He has been getting Oxycodone from his P CP, and takes this a couple times a day, but not every day. He will begin PT today and plans to see them three times a week, as well as a chiropractor. He has never had any injections in his back, but not es he has had some in his feet in the past. Donald snt had any recent imaging in the past 3 years. Had recently had an ultrasound in arm s, and legs at [facility]. He notes hav ing headaches more often. Mentions being in tr eatment for drugs & alcohol within the p ast year. 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 Duration: chronic. The problem is stable. I t occurs persistently. The patient describe s the pain as an ache. Symptoms are aggrava jane by working, walking, being on feet and mary jane bcat work. Symptoms are relieved by pain med s/drugs and rest. Functional Status Date Functional Assessment No Information Instructions Date Instruction Additional Informati on No Information Assessments Type Assessment Date No Information Patient Care Teams Name Effective Dates (start - stop) Status M embers No Information
== END 2022-05-28 07:36 | disposition home or self-care (01) ==
LOC: NFLDREF 05-30 01:43
PROVIDERS: PCP Family Medicine; Referring Provider Family Medicine; Visit Provider Family Medicine
DX: Z95.2 Presence of prosthetic heart valve (principal); Z79.01 Long term (current) use of anticoagulants; R51.9 Headache, unspecified; K59.00 Constipation, unspecified; E11.9 Type 2 diabetes mellitus without complications; I10 Essential (primary) hypertension
CPT/HCPCS: 85610

== ENCOUNTER 2022-06-03 09:26 | Outpatient (CLI) | payer MEDICAID, SELFPAY ==
--- OUTSIDE RECORDS SUMMARY | 2022-06-04 22:37 | XMS_ITS | Continuity of Care Document ---
:1970 Author Organization [facility] Address [address] [place] [address] Phone Care Team Providers Name Role Phone [...] Copied on Encounter Twin Zain No Information [facility] Fran. Pain Pain 2 [address] [facility], Clinic [place], [address] [place], [place], [place], [id number], [place], [place]. [id number] tel:[phone] , [place] [phone] tel: [phone] OFFICE/OUTPATI [facility] low back CervicalgiaLow [place] Referring ENT VISIT, [facility] pain back [place]. Provider: Pain Pain (chief painSpondylosis 6 [address] [facility], Clinic complaint) w/o myelopathy Yancy De La Garza , [address] [place] or [place] Clint De La Garza, radiculopathy, [place], [place], [place], cervical [address], [place]. Clinic [address] [place], regionMyalgia tel: [place] [phone], , [place], tel:+ [place], [phone]. [phone] tel:[phone] [place] Cervicalgia Will Referring [facility] Fran. Provider: Pain Pain 6 [address] [facility], Clinic FredericYancy, [address] [place] Clint De La Garza, [place], [place], Health [place], [id number], Clinic [address] [place], [place]. [place] [id number] tel: AVE W, , [place] [id number] [place], tel: [place], [phone]. [phone] tel:[phone] OFFICE/OUTPATI [facility] [place] low back CervicalgiaLow [place] Referring ENT VISIT, [facility] pain back pain [place]. Provide r: Pain Pain (chief 6 [address] [facility], Clinic complaint) Yancy De La Garza, [address] [place] De La Garza, [place], [place], Health [place], [address], [place]. Clinic [address] [place], tel: [place] [phone], , [place], tel: [place], [phone]. [phone] tel:[phone] OFFICE [facility] [place] low back CervicalgiaLow Cinda Referri ng CONSULTATION [facility] pain back pain 3 [place]. 7[address] Provid er: Pain Pain (chief 6 [facility], Clinic complaint) [place], [place], [place], [address] [place] [id number], Clint De La Garza, [place]. Health [place], tel: Clinic [address] [place], [id number] [place] [phone], , [place], tel:+ [place], [phone]. [phone] tel:[phone] Family History Family Member Type Diagnosis Age At Onset No Information Payers Payer name Insurance type Covered green party ID Authorization(s ) [employer] [place] [id number] Social History Type Description Quantity Date Captured Comments Sex Male Smoking Status No Information Chief Complaint And Reason For Visit No Information Reason For Referral Reason For Referral No Information Plan Of Treatment Date Type Action Status No Information History Of Present Illness Encounter Date Complaint History Of Present I brandtness low back pain Severity level is 8- [...] on 08/27. Reports that for a w [place] after the RODDY, he had a really bad headach e. He only took duloxetine for sever al days but stopped because pain relief wasn't significant. Continues going to [facility] chiropractor three times a week. low back pain (comments) Joseph is here [...] standing and working . low back pain Severity level is 9. Duration: chronic. The problem is stable. I t occurs persistently. The patient describe s the pain as an ache. Symptoms are aggrava jane by working, walking, being on feet and mary jane bcat work. Symptoms are relieved by pain med s/drugs and rest. low back pain (comments) Joseph is referr ed here by Dr. Hummel from [facility].St metz comes to [facility] for different options fo r managing [...] has been getting Oxycodone from his P , and takes this a couple times a day, but not every day. He will begin PT today and plans to see them three times a week, as well as a chiropractor. He has never had any injections in his back, but not es he has had some in his feet in the past. Odilon snt had any recent imaging in the past 3 years. Had recently had an ultrasound in arm s, and legs at [facility]. He notes hav ing headaches more often. Mentions being in tr eatment for drugs & alcohol within the p ast year. 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
== END 2022-06-03 09:27 | disposition home or self-care (01) ==
LOC: NFLDREF 06-04 22:36
PROVIDERS: PCP Family Medicine; Referring Provider Family Medicine; Visit Provider Family Medicine
DX: R31.9 Hematuria, unspecified (principal); Z95.2 Presence of prosthetic heart valve; Z79.01 Long term (current) use of anticoagulants
CPT/HCPCS: 85610; 87086

== ENCOUNTER 2022-06-10 07:40 | Outpatient (CLI) | payer MEDICAID, SELFPAY ==
--- OUTSIDE RECORDS SUMMARY | 2022-06-10 07:44 | XMS_ITS | Continuity of Care Document ---
Author Name Unknown Organization [facility] Address [address] [place] [address] [place] [address] Phone Care Team Providers Care Pad Cutter Name Role Phone Will Fran SEVILLA Unavailable Unavailabl e Allergies, Adverse Reactions, Alerts Substance Reaction Status Criticality Penicillins Active No Information Medications Medication Instructions Dosage Effective Dates (start - stop) Status Comments omeprazole 40 mg capsule,delayed release take 1 capsule by oral route every day before a meal 40 MG - Active Procedures Procedure Date OFFICE/OUTPATIENT VISIT, EST INJECT SPINE C/T-Office Surgical trays Betamethasone acet&sod phosp Omnipaque 240 50ml Omnipaque 240 Per 50ml OFFICE/OUTPATIENT VISIT, EST OFFICE CONSULTATION Advance Directives Directive Yes / No Effective Date File Name No Information Encounters Encounter Description Practice Location Reason(s) For Visit Diagnoses Date Provider Providers Copied on Encounter [facility], [address] [facility] Frederic [place], [place], [id number] , [place] tel:[phone] [facility] [place] No Information 2 Will Fran. [address] [facility] Fred[place], [id number], [place]. tel:[phone] OFFICE/OUTPATI ENT VISIT, EST [facility], [address] [facility] [place], [id number] , [place] tel:[phone] [facility] [place] low back pain (chief complaint) CervicalgiaLow back painSpondylosis w/o myelopathy or radiculopathy, cervical regionMyalgia 6 [facility]. [address] [facility] [place], [address], [place]. tel:[phone] Referring Provider: Mckayla Haines [facility] [address] [place] [place], [address]. tel:[phone] [facility], [address] [facility] [place], [id number] , [place] tel:[phone] [facility] [place] Cervicalgia 6 Sanjay Peters. [address] [facility] [place], [id number], [place]. tel:[phone] Referring Provider: Mckayla Haines, [place] [id number] [place], [address]. tel:[phone] OFFICE/OUTPATI ENT VISIT, [facility], [address] [facility] Frederic [place], [place], [id number] , [place] tel:[phone] [facility] [place] low back pain (chief complaint) CervicalgiaLow back pain 6 [facility]. [address] [facility] [place], [address], [place]. tel:[phone] Referring Provider: Mckayla Haines [place] [id number] [place], [address]. tel:[phone] OFFICE CONSULTATION [facility], [address] [facility] [place], [id number] , [place] [phone] [facility] [place] low back pain (chief complaint) CervicalgiaLow back pain 6 Cinda Randee. [address] [facility] [place], [place], [id number], [place]. tel:[phone] Referring Provider: Mckayla Haines [facility] [address], [address]. tel:[phone] Family History Family Member Type Diagnosis Age At Onset No Information Payers Payer name Insurance type Covered alliance party ID Leanne young(s) Fern MAYNARD [id number] Social History Type Description Quantity Date Captured Comments Sex Male Smoking Status No Information Chief Complaint And Reason For Visit No Information Reason For Referral Reason For Referral No Information Plan Of Treatment Date Type Action Status No Information History Of Present Illness Encounter Date Complaint History Of Mckinley nt Illness low back pain (comments) Joseph berman s here for follow up. Reports 60% pain relief with the left [place] C7-T1 RODDY on 08/27. Reports that for a week after the RODDY, he had a really bad headache. He only took duloxetine for several days but stopped because pain relief wasn't significant. Continues going to the chiropractor three times a week. low back pain Severity level i s 8-9. Duration: chronic. The problem is fluctuating. It occurs intermittently. Location of pain is middle back, lower back and neck.The patient describes the pain as an ache. Symptoms are aggravated by daily activities, standing and working. Symptoms are relieved by lying down, physical therapy and rest. low back pain (comments) Joseph berman s here for a f/u regarding his lower back pain. Patient states he has lower back and neck pain, and radicular pain in bilateral arms. Patient started PT, and is interested in cervical RODDY. He is also interested in medication to help him until the RODDY. No other concerns today. low back pain Severity level i s 8. Duration: chronic. The problem is fluctuating. It occurs intermittently. Location of pain is lower back and neck. Pain is radiated to the left arm and right arm.The patient describes the pain as an ache and sharp. Symptoms are aggravated by bending, daily activities, standing and working. low back pain (comments) Joseph berman s referred here by Dr. Hummel from [facility].Joseph comes to [facility] for different options for managing his pain, as he has tried multiple medications in the past that have not been helpful. His main complaint it low back, and neck pain. He also has had foot pain since he was a child.He is unable to say when his pain began, as he has had this for years. He has been getting Oxycodone from his PCP, and takes this a couple times a day, but not every day. He will begin PT today and plans to see them three times a week, as well as a chiropractor. He has never had any injections in his back, but notes he has had some in his feet in the past. Hasnt had any recent imaging in the past 3 years. Had recently had an ultrasound in arms, and legs at [facility]. He notes having headaches more often. Mentions being in treatment for drugs & alcohol within the past year. 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 Duration: chronic. The problem is stable. It occurs persistently. The patient describes the pain as an ache. Symptoms are aggravated by working, walking, being on feet and bobcat work. Symptoms are relieved by pain meds/drugs and rest. Functional Status Date Functional Assessmen t No Information Instructions Date Instruction Additional Infor mation No Information Assessments Type Assessment Date No Information Patient Care Teams Name Effective Dates (start - stop) Status Members No Information
--- NOTE | 2022-06-10 08:00 | CRLHL7_ITS ---
For Patients: As a result of the Century Cures Act, medical imaging exams and procedure reports are released immediately into your electronic medical record. You may view this report before your referring provider. If you have questions, please contact your health care provider. Indication: Hematuria Technique: CT urogram Comparison: CT 03/09/2020 Findings: Heart size is normal. 4 millimeter medial right lower lobe pulmonary nodule on 08/31 unchanged. Lung bases appear clear. Median sternotomy. Spleen liver pancreas adrenal glands gallbladder unremarkable. Normal caliber abdominal aorta. Normal appendix. 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 No suspicious filling defects in the opacified collecting systems or ureters no hydronephrosis is seen. The urinary bladder is unremarkable. No renal calculi seen. Mild prominence of the right renal. Small fat containing inguinal hernias. The bowel appears unremarkable. No suspicious bony lesions are seen. Impression: 1. Cross fused renal ectopia. Slight prominence of the right renal pelvis kidneys. Urinary tract otherwise appears unremarkable. Please note that all CT scans at this facility use dose modulation, iterative reconstruction, and/or weight-based dosing when appropriate to reduce radiation dose to as low as reasonably achievable. Dictated by Haleigh Lal MD @ 06/10/2022 9:33:10 AM (Electronically Signed)
== END 2022-06-10 07:41 | disposition home or self-care (01) ==
LOC: CT 07:42
PROVIDERS: PCP Family Medicine; Visit Provider Physician Assistant
DX: I50.9 Heart failure, unspecified (principal)
CPT/HCPCS: 74178; Q9967

== ENCOUNTER 2022-06-10 08:53 | Emergency (ER) | payer MEDICAID, SELFPAY ==
[2022-06-10 08:57] VITALS: BP 119/76; PULSE 96; RESP 14; TEMP 36.5; O2SAT 96; BMI 38.9
--- OUTSIDE RECORDS SUMMARY | 2022-06-10 09:16 | XMS_ITS | Continuity of Care Document ---
Author Name Unknown Organization [facility] Address [address] [place] [address] [place] [address] Phone Care Team Providers Care Hotel Server Name Role Phone Will Fran SEVILLA Unavailable [...] Diagnoses Date Provider Providers Copied on Encounter [facility], [address] [facility] Fred[place], [place], [id number] , [place] tel:[phone] [facility] [place] No Information 2 Will Fran. [address] [facility] [place], [id number], [place]. tel:[phone] OFFICE/OUTPATI ENT VISIT, EST [facility], [address] [facility] Magy [place], [id number] , [place] tel:[phone] [facility] [place] low back pain (chief complaint) CervicalgiaLow back painSpondylosis w/o myelopathy or radiculopathy, cervical regionMyalgia 6 [facility]. [address] [facility] [place], [address], [place]. tel:[phone] Referring Provider: Mckayla Haines [facility] [address] [place], [address]. tel:[phone] [facility], [address] [facility] [place], [id number] , [place] tel:[phone] [facility] [place] Cervicalgia 6 Sanjay Peters. [address] [facility] [place], [id number], [place]. tel:[phone] Referring Provider: Mckayla Haines, [place] [address] [place], [address]. tel:[phone] OFFICE/OUTPATI ENT VISIT, [facility], [address] [facility] Fred[place], [place], [id number] , [place] tel:[phone] [facility] [place] low back pain (chief complaint) CervicalgiaLow back pain 6 [facility]. [address] [facility] [place], [address], [place]. tel:[phone] Referring Provider: Mckayla Haines [place] [id number] [place], [address]. tel:[phone] OFFICE CONSULTATION [facility], [address] [facility] [place], [id number] , [place] [phone] [facility] [place] low back pain (chief complaint) CervicalgiaLow back pain 6 Cinda Randee. [address] [facility] [place], [place], [address], [place]. tel:[phone] Referring Provider: Mckayla Haines [facility] [address] [place], [address]. tel:[phone] Family History Family Member Type Diagnosis Age At Onset No Information Payers Payer name Insurance type Covered alliance party ID Leanne young(s) Fern MAYNARD [id number] Social History Type Description Quantity Date Captured Comments Sex Male Smoking Status No Information Chief Complaint And Reason For Visit No Information Reason For Referral Reason For Referral No Information Plan Of Treatment Date Type Action Status No Information History Of Present Illness Encounter Date Complaint History Of Mckinley nt Illness low back pain Severity level i s [...] are relieved by pain meds/drugs and rest. low back pain (comments) Joseph berman s referred here by Dr. Hummel from [facility].Joseph comes to [facility] for different options for managing his pain, [...] an ultrasound in arms, and legs at [facility]. He notes having headaches more often. Mentions being in treatment for drugs & alcohol within the past year. 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
--- OUTSIDE RECORDS SUMMARY | 2022-06-10 09:23 | XMS_ITS | Continuity of Care Document ---
Author Name Unknown Organization [facility] Address [address] [place] [address] [place] [address] Phone Care Team Providers Care Library Cataloging Technician Name Role Phone Will Fran SEVILLA Unavailable [...] Diagnoses Date Provider Providers Copied on Encounter [facility], [address] [facility] Frederic [place], [place], [id number] , [place] tel:[phone] [facility] [place] No Information 2 Will Fran. [address] [facility] Fred[place] Hannah [place], [id number], [place]. tel:[phone] OFFICE/OUTPATI ENT VISIT, EST [facility], [address] [facility] Magy De [place], [id number] , [place] tel:[phone] [facility] [place] low back pain (chief complaint) CervicalgiaLow back painSpondylosis w/o myelopathy or radiculopathy, cervical regionMyalgia 6 [facility]. [address] [facility] [place], [address], [place]. tel:[phone] Referring Provider: Mckayla Haines [facility] [address] [place], [address]. tel:[phone] [facility], [address] [facility] Magy De [place], [id number] , [place] tel:[phone] [facility] [place] Cervicalgia 6 Sanjay Peters. [address] [facility] Hannah De [place], [id number], [place]. tel:[phone] Referring Provider: Mckayla Haines, [place] [address] [place], [address]. tel:[phone] OFFICE/OUTPATI ENT VISIT, [facility], [address] [facility] Fred[place], [place], [address] , [place] tel:[phone] [facility] [place] low back pain (chief complaint) CervicalgiaLow back pain 6 [facility]. [address] [facility] [place], [address], [place]. tel:[phone] Referring Provider: Mckayla Haines [place] [id number] [place], [address]. tel:[phone] OFFICE CONSULTATION [facility], [address] [facility] [place], [id number] , [place] [phone] [facility] [place] low back pain (chief complaint) CervicalgiaLow back pain 6 Cinda Randee. [address] [facility] [place], [place], [id number], [place]. tel:[phone] Referring Provider: Mckayla Haines [facility] [address] [place], [address]. tel:[phone] Family History Family Member Type Diagnosis Age At Onset No Information Payers Payer name Insurance type Covered constitution party ID Leanne young(s) Fern MAYNARD [id number] Social History Type Description Quantity Date Captured [...] s referred here by Dr. Hummel from [facility].Joseph comes to [facility] for different options for managing [...] an ultrasound in arms, and legs at [facility]. He notes having headaches more often. Mentions being in treatment for drugs & alcohol within the past year. 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
--- NOTE | 2022-06-10 09:49 | CRLHL7_ITS ---
For Patients: As a result of the Century Cures Act, medical imaging exams and procedure reports are released immediately into your electronic medical record. You may view this report before your referring provider. If you have questions, please contact your health care provider. INDICATION: CHF TECHNIQUE: Two view chest. FINDINGS: The lungs are clear. The heart, mediastinum and pulmonary vessels are of normal size. There is no evidence of pleural disease. Median sternotomy. Cardiac valve prostheses. IMPRESSION: Negative chest. Dictated by Haleigh Lal MD @ 06/10/2022 10:29:29 AM (Electronically Signed)
--- OUTSIDE RECORDS SUMMARY | 2022-06-10 10:01 | XMS_ITS | Continuity of Care Document ---
Author Name Unknown Organization [facility] Address [address] [place] [address] [place] [address] Phone Care Team Providers Care Bulwark Carpenter Name Role Phone Will Fran SEVILLA Unavailable [...] Diagnoses Date Provider Providers Copied on Encounter [facility], [address] [facility] Frederic [place], [place], [id number] , [place] tel:[phone] [facility] [place] No Information 2 Will Fran. [address] [facility] [place] Hannah [place], [id number], [place]. tel:[phone] OFFICE/OUTPATI ENT VISIT, EST [facility], [address] [facility] Magy De [place]za [place], [id number] , [place] tel:[phone] [facility] [place] low back pain (chief complaint) CervicalgiaLow back painSpondylosis w/o myelopathy or radiculopathy, cervical regionMyalgia 6 [facility]. [address] [facility] [place], [address], [place]. tel:[phone] Referring Provider: Mckayla Haines [facility] [address] [place], [address]. tel:[phone] [facility], [address] [facility] Magy [place], [id number] , [place] tel:[phone] [facility] [place] Cervicalgia 6 Sanjay Peters. [address] [facility] [place], [id number], [place]. tel:[phone] Referring Provider: Mckayla Haines, [place] [address] [place], [address]. tel:[phone] OFFICE/OUTPATI ENT VISIT, [facility], [address] [facility] Fred[place], [place], [address] , [place] tel:[phone] [facility] [place] low back pain (chief complaint) CervicalgiaLow back pain 6 [facility]. [address] [facility] [place], [address], [place]. tel:[phone] Referring Provider: Mckayla Haines [place] [address] [place], [address]. tel:[phone] OFFICE CONSULTATION [facility], [address] [facility] [place], [id number] , [place] [phone] [facility] [place] low back pain (chief complaint) CervicalgiaLow back pain 6 Cinda Randee. [address] [facility] [place], [place], [address], [place]. tel:[phone] Referring Provider: Mckayla Haines [facility] [address] [place], [address]. tel:[phone] Family History Family Member Type Diagnosis Age At Onset No Information Payers Payer name Insurance type Covered republican ID Leanne young(s) Fern MAYNARD [id number] Social History Type Description Quantity Date Captured [...] pain relief with the left [place] C7-T1 RDODY on 08/27. Reports that for a week [...] referred here by Dr. Hummel from [facility].Joseph comes to [facility] for different options for managing his pain, [...] an ultrasound in arms, and legs at [facility]. He notes having headaches more often. Mentions being in treatment for drugs & alcohol within the past year. 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
--- OUTSIDE RECORDS SUMMARY | 2022-06-10 10:01 | XMS_ITS | Continuity of Care Document ---
Author Name Unknown Organization [facility] Address [address] [address] [place] [address] Phone Care Team Providers Care Senior Information Developer Name Role Phone Luis Clemons MD Unavailable Unavailable Advance Directives Directive Yes / No Effective Date File Name No Information Encounters Encounter Description Practice Location Reason(s) For Visit Diagnoses Date Provider Providers Copied on Encounter [facility], [address] [address], [place], [place], [id number], [place] tel:[phone] [facility] No Information Kaci Smith. [address] [facility], [place], [place], [address], [place]. tel:[phone] Family History Family Member Type Diagnosis Age At Onset No Information Payers Payer name Insurance type Covered green party ID Authoriza tion(s) No Information Social History Type Description Quantity Date Captured Comments Sex Male Smoking Status No Information Chief Complaint And Reason For Visit No Information Reason For Referral Reason For Referral No Information Plan Of Treatment Date Type Action Status Appointment Joseph Moseley BOOKED History Of Present Illness Encounter Date Complaint History Of Prese nt Illness No Information Functional Status Date Functional Assessmen t No Information Instructions Date Instruction Additional Infor mation No Information Assessments Type Assessment Date No Information Patient Care Teams Name Effective Dates (start - stop) Status Members No Information
[2022-06-10 10:18] LABS: Basophils Absolute Auto 0.01 K/uL (0.00-0.30); Basophils Percent Auto 0.1 % (0.0-3.0); Eosinophils Absolute Auto 0.16 K/uL (0.00-0.50); Eosinophils Percent Auto 2.3 % (0.0-7.0); Hematocrit 43.3 % (37.0-53.0); Hemoglobin* 14.1 gm/dL (13.5-17.5); Lymphocytes Absolute Auto 1.56 K/uL (0.90-2.90); Lymphocytes Percent Auto 22.4 % (20-44); Mean Corpuscular HGB Conc 33 gm/dL (32-36); Mean Corpuscular Hemoglobin 27 pg (26-34); Mean Corpuscular Volume 82 fL (80-100); Monocytes Percent Auto 4.6 % (0.0-11.0); Neutrophils Absolute Auto 4.92 K/uL (1.7-7.0); Neutrophils Percent Auto 70.6 % (42.0-72.0); Platelet Count* 227 K/uL (140-440); RDW Coefficient of Variation % 12.7 % (11.5-15.5); Red Blood Count 5.29 m/uL (4.30-5.90); White Blood Count* 6.97 K/uL (4.50-11.00)
[2022-06-10 10:22] LABS: Slide Review Reflex No
[2022-06-10 10:24] LABS: Troponin, Point-of-Care* 0.06 ng/ml (0.01-0.04)
[2022-06-10 10:31] LABS: Chloride* 102 mmol/L (96-114); Potassium* 4.5 mmol/L (3.6-5.1); Sodium* 136 mmol/L (135-149)
[2022-06-10 10:34] LABS: Carbon Dioxide* 27 mmol/L (20-32); Creatinine* 0.7 mg/dL (0.5-1.5); Est. Creatinine Clearance* 128.49; Estimated Glomerular Filt Rate 110 ml/min; INR 3.15 (0.91-1.10); Prothrombin Time 33.8 Seconds
[2022-06-10 10:35] LABS: Blood Urea Nitrogen* 16 mg/dL (7-30); Glucose* 177 mg/dL (60-115)
[2022-06-10 10:45] LABS: NT Pro B Type NatriureticPept* 288 pg/mL
[2022-06-10 11:19] VITALS: BP 121/76; PULSE 76; RESP 16; O2SAT 96
--- NOTE | 2022-06-10 11:54 | ED.NURSE ---
pt resting in bed, watching tv. no complaints
[2022-06-10 12:38] LABS: Troponin, Point-of-Care* 0.06 ng/ml (0.01-0.04)
[2022-06-10 13:00] VITALS: BP 124/68; PULSE 65; RESP 20; O2SAT 96
--- NOTE | 2022-06-10 16:42 | ED.GENADULT ---
HPI - General Adult General Date Seen: 06/10/22 Chief complaint: Post Op Complication Stated complaint: Sent by [employer] at [place]/weight is up Time Seen by Provider: 06/10/22 09:04 Source: patient Mode of arrival: ambulatory Limitations: no limitations History of Present Illness HPI narrative: Patient is a very nice 52-year-old gentleman who 6 weeks ago underwent a mechanical aortic valve replacement, he was on the phone today with his cardiology provider, and told him that is waking is been 5 lb in the last couple days and they told him to go see his primary care doctor. He had appointment 11 but felt that he wanted to be seen earlier, so came to the emergency room. He is having no shortness of breath, denies any chest pain, increased leg swelling, chest pain or any other concerns. Says things have been going well he has been taking his Coumadin, Related Data Home Medications Medication Instructions Recorded Confirmed nitroglycerin 0.4 mg sublingual 0.4 mg sublingual Q5M PRN 02/21/22 06/10/22 tablet sumatriptan succinate 100 mg tablet 100 mg PO .As Needed as needed PRN 02/21/22 06/10/22 methocarbamol 500 mg tablet 500 mg PO QDAY 05/15/22 06/10/22 metoprolol tartrate 50 mg tablet 50 mg PO BID 05/15/22 06/10/22 sennosides 8.6 mg-docusate sodium 1 - 4 tab PO QHS 05/15/22 06/10/22 50 mg tablet (Senexon-S) Previous Rx's Medication Instructions Recorded cyclobenzaprine 10 mg tablet 10 mg PO TID PRN muscle spasm #30 04/21/22 tabs blood pressure monitor #1 ea 05/15/22 omeprazole 40 mg capsule,delayed 40 mg PO DAILY #30 caps 05/15/22 release acetaminophen 500 mg tablet 1,000 mg PO QID PRN pain #100 tabs 05/28/22 oxycodone 5 mg tablet 5 - 10 mg PO Q6H PRN pain #60 tabs 06/03/22 warfarin 2.5 mg tablet See Rx Instructions PO .COMPLEX 06/04/22 #180 tabs Allergies Allergy/AdvReac Type Severity Reaction Status Date / Time hydrocodone Allergy Verified 06/10/22 09:15 Penicillins Allergy Verified 06/10/22 09:15 Tetanus Vaccines and Toxoid Allergy Verified 06/10/22 09:15 Review of Systems Status of ROS: Reports: 10 or more systems reviewed and unremarkable except as noted in History and below [facility] Medical History Atypical chest pain (04/16/22) ?R07.89 - Other chest pain (ICD-10) Calculus of kidney ?N20.0 - Calculus of kidney (ICD-10) Cocaine dependence in remission (01/20/15) ?F14.21 - Cocaine dependence, in remission (ICD-10) Hematuria ?R31.9 - Hematuria, unspecified (ICD-10) History of attention deficit hyperactivity disorder (ADHD) ?Z86.59 - Personal history of other mental and behavioral disorders (ICD-10) Insomnia (01/20/15) ?G47.00 - Insomnia, unspecified (ICD-10) Musculoskeletal back pain (04/16/22) ?M54.9 - Dorsalgia, unspecified (ICD-10) Plantar fasciitis, bilateral (12/22/13) ?M72.2 - Plantar fascial fibromatosis (ICD-10) Vitamin D deficiency (04/11/15) ?E55.9 - Vitamin D deficiency, unspecified (ICD-10) Surgical History History of arthroscopy of left knee ?Z98.890 - Other specified postprocedural states (ICD-10) History of colonoscopy (08/16/21) ?Z98.890 - Other specified postprocedural states (ICD-10) History of foot surgery ?Z98.890 - Other specified postprocedural states (ICD-10) History of open reduction and internal fixation (ORIF) procedure (2006) ?Z98.890 - Other specified postprocedural states (ICD-10) Family History Father Glaucoma Other Diabetes Social History Smoking Status: Former smoker Do you use any of these nicotine containing products: None Second hand tobacco smoke exposure: No How often do you have a drink containing alcohol: monthly or less AUDIT-C Alcohol total score: 1 Non-prescribed substance use: marijuana (any form) Little interest or pleasure in doing things: more than half the days Feeling down, depressed, or hopeless: not at all service: No Exam Narrative: Exam Narrative: Patient is seen in room 5 he is in no apparent distress, pupils equal round reactive to light there is no scleral icterus redness, TMs are normal bilaterally, JVP is flat, neck is supple full range of motion, his chest is good air entry bilaterally with absence of wheezing or crackles noted no signs or spy travis distress, his sed chest reveals a scar from the previous open heart surgery, it is healing very well, as there is no significant redness suggestive of the infection noted. Heart sounds there is a click mechanical click of S2 noted. But otherwise no murmurs S3-S4 noted. Abdomen is soft and obese, there is no guarding, no tenderness, no organomegaly. No edema of the legs bilaterally is noted. Const: Vital Signs, click to edit/add: Vital Signs - 24 hr 06/10/22 08:57 06/10/22 11:19 06/10/22 13:00 Temperature 97.7 F Pulse Rate [Pulse Oximeter] 96 76 65 Respiratory Rate 14 16 20 Blood Pressure [Ri ght Upper Arm] 119/76 121/76 124/68 Pulse Oximetry 96 96 96 Oxygen Delivery Me thod Room Air Room Air Room Air Documenting provider has reviewed patient's vital signs: yes Course Course Hospital Course: Discussed with the patient EKG looks good normal sinus rhythm on his EKG, his chest x-ray looks good there is no evidence of a significantly elevated BNP, he sounds good, and his troponins delta is negative x2. I think it would be reasonable let him go home, he was reassured by this follow-up with regular provider, he was told that he was therapeutic on his Coumadin. Vital Signs Vital signs: Initial Vital Signs Temperature 97.7 F 06/10/22 08:57 Temperature Source Temporal Artery Scan 06/10/22 08:57 Pulse Rate 96 06/10/22 08:57 Pulse Rhythm Regular 06/10/22 08:57 Respiratory Rate 14 06/10/22 08:57 Blood Pressure 119/76 06/10/22 08:57 Blood Pressure Mean 90 06/10/22 08:57 Blood Pressure Position Sitting 06/10/22 08:57 Pulse Oximetry 96 06/10/22 08:57 Oxygen Delivery Method Room Air 06/10/22 08:57 Vital Signs Temperature 97.7 F 06/10/22 08:57 Pulse Rate 96 06/10/22 08:57 Respiratory Rate 14 06/10/22 08:57 Blood Pressure 119/76 06/10/22 08:57 Pulse Oximetry 96 06/10/22 08:57 Oxygen Delivery Method Room Air 06/10/22 08:57 Temperature 97.7 F 06/10/22 08:57 Pulse Rate 65 06/10/22 13:00 Respiratory Rate 20 06/10/22 13:00 Blood Pressure 124/68 06/10/22 13:00 Pulse Oximetry 96 06/10/22 13:00 Oxygen Delivery Method Room Air 06/10/22 13:00 Medical Decision Making MDM Narrative Medical decision making narrative: Life-threatening differential diagnosis includes occluded COPD exacerbation, pulmonary edema, acute coronary syndromes, pulmonary embolism, pneumonia, and pneumothorax. Other differential diagnosis considerations include asthma, bronchitis as well as other etiologies Medical Records Medical records reviewed: Yes I reviewed the patient's medical records Lab Data Lab results reviewed: Yes I reviewed the patient's lab results Labs: Lab Results 06/10/22 06/10/22 Range/Units 10:10 12:10 WBC 6.97 (4.50-11.00) K/uL RBC 5.29 (4.30-5.90) m/uL Hgb 14.1 (13.5-17.5) gm/dL Hct 43.3 (37.0-53.0) % MCV 82 (80-100) fL MCH 27 (26-34) pg MCHC 33 (32-36) gm/dL RDW Coeff of Karina 12.7 (11.5-15.5) % Plt Count 227 (140-440) K/uL Neut % (Auto) 70.6 (42.0-72.0) % Lymph % (Auto) 22.4 (20-44) % Lanier % (Auto) 4.6 (0.0-11.0) % Eos % (Auto) 2.3 (0.0-7.0) % Baso % (Auto) 0.1 (0.0-3.0) % Neut # (Auto) 4.92 (1.7-7.0) K/uL Lymph # (Auto) 1.56 (0.90-2.90) K/uL Lanier # (Auto) 0.30 (0.00-0.90) K/UL Eos # (Auto) 0.16 (0.00-0.50) K/uL Baso # (Auto) 0.01 (0.00-0.30) K/uL INR 3.15 H (0.91-1.10) Sodium 136 (135-149) mmol/L Potassium 4.5 (3.6-5.1) mmol/L Chloride 102 (96-114) mmol/L Carbon Dioxide 27 (20-32) mmol/L BUN 16 (7-30) mg/dL Creatinine 0.7 (0.5-1.5) mg/dL Estimated Creat Clear 128.49 Estimated GFR 110 ml/min Glucose 177 H (60-115) mg/dL Calcium 9.0 (8.4-10.6) mg/dL NT-Pro-B Natriuret Pep 288 pg/mL POC Troponin I 0.06 H 0.06 H (0.01-0.04) ng/ml Imaging Data Chest x-ray: Attestation: I have reviewed the pertinent imaging results. My impression: Negative acute [facility] Facility:?[facility] Patient ID:?[id number] Site Patient ID:?[id number]. Site :?[id number] Study:?XRay Chest 2 VIEW-06/10/2022 10:23:56 AM Ordering Physician:Bhargav Quezada Final Report: INDICATION: CHF TECHNIQUE: Two view chest. FINDINGS: The lungs are clear. The heart, mediastinum and pulmonary vessels are of normal size. There is no evidence of pleural disease. Median sternotomy. Cardiac valve prostheses. IMPRESSION: Negative chest. Dictated by Haleigh Lal MD @ 06/10/2022 10:29:29 AM (Electronic Signature) ECG Data Attestation: I personally reviewed and interpreted this ECG as follows: Interpretation: Normal sinus rhythm no acute ST wave changes, QRS QT NV interval are normal Discharge Plan Discharge Clinical Impression: Aortic valve disorders, Rapid weight gain Patient Disposition: Home, Self-Care Condition: Stable Additional Instructions: Home rest follow-up per cardiology's instructions, no evidence of current failure Activity Level: No Restrictions Prescriptions: No Action metoprolol tartrate 50 mg tablet 50 mg PO BID sennosides-docusate sodium [Senexon-S] 8.6-50 mg tablet 1 - 4 tab PO QHS methocarbamol 500 mg tablet 500 mg PO QDAY omeprazole 40 mg capsule,delayed release(DR/EC) 40 mg PO DAILY Qty: 30 11RF (DME) blood pressure monitor Kit See Rx Instructions .ROUTE .MEDSUPPLY Qty: 1 0RF Rx Instructions: As directed acetaminophen 500 mg tablet 1,000 mg PO QID PRN (Reason: pain) Qty: 100 4RF sumatriptan succinate 100 mg tablet 100 mg PO .As Needed as needed PRN Rx Instructions: ONE TAB AT ONSET OF HEADACHE, MAY REPEAT ONCE IN 2 HRS, MAX 200 MG/24 HRS nitroglycerin 0.4 mg tablet, sublingual 0.4 mg sublingual Q5M PRN cyclobenzaprine 10 mg tablet 10 mg PO TID PRN (Reason: muscle spasm) Qty: 30 0RF oxycodone 5 mg tablet 5 - 10 mg PO Q6H PRN (Reason: pain) Qty: 60 0RF warfarin 2.5 mg tablet See Rx Instructions PO .COMPLEX Qty: 180 0RF Protocol: Dose Management Condition: Thursday Dose/Route: 5 mg Instruction: 2 x 2.5 mg tablets Condition: Thursday Dose/Route: 7.5 mg Instruction: 3 x 2.5 mg tablets Condition: Thursday Dose/Route: 5 mg Instruction: 2 x 2.5 mg tablets Condition: Thursday Dose/Route: 5 mg Instruction: 2 x 2.5 mg tablets Condition: Dose/Route: 7.5 mg Instruction: 3 x 2.5 mg tablets Condition: Thursday Dose/Route: 5 mg Instruction: 2 x 2.5 mg tablets Condition: Thursday Dose/Route: 5 mg Instruction: 2 x 2.5 mg tablets Protocol Text: Adjustment Start Date: Thursday06/03/22 INR Value: 3.31 INR Date: 06/03/22 Recheck Date: 07/01/22 Rx Instructions: Take 7.5 mg by mouth twice weekly. Take 5 mg by mouth the rest of the week. Follow Up/Referrals: Mitul Wayne MD [Primary Care Provider] - Stand Alone Forms: [employer] Info Instructions
== END 2022-06-10 13:38 | disposition home or self-care (01) ==
PROVIDERS: Emergency Provider Family Medicine; PCP Family Medicine
DX: R63.5 Abnormal weight gain (principal); I35.8 Other nonrheumatic aortic valve disorders
CPT/HCPCS: 36415; 71046; 80048; 83880; 84484; 85025; 85610; 93005; 99284

== ENCOUNTER 2022-07-01 08:26 | Outpatient (CLI) | payer MEDICAID, SELFPAY ==
--- OUTSIDE RECORDS SUMMARY | 2022-07-03 12:00 | XMS_ITS | Continuity of Care Document ---
Author Name Unknown Organization [facility] Address [address] [place] [address] [place] [address] Phone Care Team Providers Care Anvilsmith Name Role Phone Will Fran SEVILLA Unavailable [...] Diagnoses Date Provider Providers Copied on Encounter [facility], [address] [facility] Frederic [place], [place], [id number] , [place] tel:[phone] [facility] [place] No Information 2 Will Fran. [address] [place], [id number], [place]. tel:[phone] OFFICE/OUTPATI ENT VISIT, EST [facility], [address] [address] [place], [id number] , [place] tel:[phone] [facility] [place] low back pain (chief complaint) CervicalgiaLow back painSpondylosis w/o myelopathy or radiculopathy, cervical regionMyalgia 6 [facility]. [address] [place], [address], [place]. tel:[phone] Referring Provider: Mckayla Haines [facility] [address] [place], [address]. tel:[phone] [facility], [address] [address] [place], [id number] , [place] tel:[phone] [facility] [place] Cervicalgia 6 Sanjay Peters. [address] [address] Hannah [place], [id number], [place]. tel:[phone] Referring Provider: Mckayla Haines, [place] [id number] [place], [address]. tel:[phone] OFFICE/OUTPATI ENT VISIT, [facility], [address] [place], [place], [id number] , [place] tel:[phone] [facility] Magy low back pain (chief complaint) CervicalgiaLow back pain 6 [facility]. [address] [place], [address], [place]. tel:[phone] Referring Provider: Mckayla Haines [place] [id number] [place], [address]. tel:[phone] OFFICE CONSULTATION [facility], [address] [address] [place], [id number] , [place] [phone] [facility] [place] low back pain (chief complaint) CervicalgiaLow back pain 6 Cinda Randee. [address] [facility] [place], [place], [id number], [place]. tel:[phone] Referring Provider: Mckayla Haines [facility] [address] [place], [address]. tel:[phone] Family History Family Member Type Diagnosis Age At Onset No Information Payers Payer name Insurance type Covered republican ID Leanne young(s) Fern MAYNARD [id number] Social History Type Description Quantity Date Captured [...] s referred here by Dr. Hummel from [facility].Joesph comes to [facility] for different options for managing [...] an ultrasound in arms, and legs at [facility]. He notes having headaches more often. Mentions being in treatment for drugs & alcohol within the past year. 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
== END 2022-07-01 08:27 | disposition home or self-care (01) ==
LOC: NFLDREF 07-03 11:58
PROVIDERS: PCP Family Medicine; Referring Provider Family Medicine; Visit Provider Family Medicine
DX: Z95.2 Presence of prosthetic heart valve (principal)
CPT/HCPCS: 85610

== ENCOUNTER 2022-07-04 12:43 | Outpatient (CLI) | payer MEDICAID, SELFPAY ==
--- OUTSIDE RECORDS SUMMARY | 2022-07-04 12:46 | XMS_ITS | Continuity of Care Document ---
Author Name Unknown Organization [facility] Address [address] [place] [address] [place] [address] Phone Care Team Providers Care Plate Gauger Name Role Phone Will Fran SEVILLA Unavailable [...] Diagnoses Date Provider Providers Copied on Encounter [facility], [address] [facility] Fred[place], [place], [id number] , [place] tel:[phone] [facility] [place] No Information 2 Will Fran. [address] [facility] [place] Hannah [place]baum [place], [id number], [place]. tel:[phone] OFFICE/OUTPATI ENT VISIT, EST [facility], [address] [facility] [place], [id number] , [place] tel:[phone] [facility] [place] low back pain (chief complaint) CervicalgiaLow back painSpondylosis w/o myelopathy or radiculopathy, cervical regionMyalgia 6 [facility]. [address] [facility] [place], [address], [place]. tel:[phone] Referring Provider: Mckayla Haines [facility] [address] [place], [address]. tel:[phone] [facility], [address] [facility] [place], [id number] , [place] tel:[phone] [facility] [place] Cervicalgia 6 Sanjay Peters. [address] [facility] [place], [id number], [place]. tel:[phone] Referring Provider: Mckayla Haines, [place] [id number] [place], [address]. tel:[phone] OFFICE/OUTPATI ENT VISIT, [facility], [address] [facility] [place], [place], [id number] , [place] tel:[phone] [facility] Magy low back pain (chief complaint) CervicalgiaLow back pain 6 [facility]. [address] [facility] [place], [address], [place]. tel:[phone] Referring Provider: Mckayla Haines [place] [id number] [place], [address]. tel:[phone] OFFICE CONSULTATION [facility], [address] [facility] [place], [id number] , [place] [phone] [facility] [place] low back pain (chief complaint) CervicalgiaLow back pain 6 Cinda Randee. [address] [facility] [place], [place], [id number], [place]. tel:[phone] Referring Provider: Mckayla Haines [facility] [address] [place], [address]. tel:[phone] Family History Family Member Type Diagnosis Age At Onset No Information Payers Payer name Insurance type Covered alliance party ID Leanne young(s) Fern MAYNARD [id number] Social History Type Description Quantity Date Captured [...] s referred here by Dr. Hummel from [facility].Joseph comes to [facility] for different options for managing his [...] an ultrasound in arms, and legs at [facility]. He notes having headaches more often. Mentions being in treatment for drugs & alcohol within the past year. 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
--- NOTE | 2022-07-04 13:00 | CRLHL7_ITS ---
For Patients: As a result of the Century Cures Act, medical imaging exams and procedure reports are released immediately into your electronic medical record. You may view this report before your referring provider. If you have questions, please contact your health care provider. Indication: Status post aortic valve repair Technique: Noncontrast CT chest Please note that all CT scans at this facility use dose modulation, iterative reconstruction, and/or weight-based dosing when appropriate to reduce radiation dose to as low as reasonably achievable. Comparison: 06/10/2022, 07/27/2019 Findings: Postoperative changes of median sternotomy and aortic valve repair. Midline soft tissue incision noted without postop fluid collection or hemorrhage. Mild postop stranding within the anterior mediastinal fat. Mild bilateral gynecomastia. Visualized thyroid normal. No enlarged intrathoracic lymph nodes. Fatty liver. Spleen normal. Normal adrenal glands. Stable benign calcified nodule within the right lower lobe at the medial aspect. No infiltrate or edema. No effusion or pneumothorax. Impression: Postop changes median sternotomy and aortic valve repair with incomplete osseous bridging across sternotomy. The cerclage wires are intact. Mild postop stranding within the retrosternal fat without fluid collection or abscess. No pleural or pericardial effusion. No pulmonary edema. Please note that all CT scans at this facility use dose modulation, iterative reconstruction, and/or weight-based dosing when appropriate to reduce radiation dose to as low as reasonably achievable. Dictated by Ismael Squires MD @ 07/04/2022 1:44:56 PM (Electronically Signed)
== END 2022-07-04 12:44 | disposition home or self-care (01) ==
LOC: CT 12:44
PROVIDERS: PCP Family Medicine; Visit Provider Physician Assistant
DX: Z95.2 Presence of prosthetic heart valve (principal)
CPT/HCPCS: 71250

== ENCOUNTER 2022-07-08 08:44 | Outpatient (CLI) | payer MEDICAID, SELFPAY | END 2022-07-08 08:45 | disposition home or self-care (01) | LOC: NFLDREF 08:44 | PROVIDERS: PCP Family Medicine; Visit Provider Family Medicine | DX: Z79.01 Long term (current) use of anticoagulants (principal) | CPT/HCPCS: 85610 ==

== ENCOUNTER 2022-09-25 16:49 | Emergency (ER) | payer MEDICAID, SELFPAY ==
[2022-09-25 16:59] VITALS: BP 142/79; PULSE 83; RESP 20; TEMP 36.4; O2SAT 96
--- NOTE | 2022-09-25 17:32 | ED_ITS ---
HPI - General Adult General Chief complaint: Unspecified Complaint, Adult Stated complaint: Needs INR raised Time Seen by Provider: 09/25/22 17:01 History of Present Illness HPI narrative: This 52-year-old male comes in for advice regarding Coumadin treatment. His INR needs to be between 2.5 and 3.5 as he has a mechanical aortic valve. He is scheduled for endoscopy tomorrow so he decreased his Coumadin dosing from 5 mg daily to 5 mg every other day with alternate days at 2.5 mg. He has been doing this for about a week and the goal for endoscopy procedure is for his INR to be between 2.5 and 3.0. This morning his INR was at 2.0 and he is seeking advice what he should take tonight to hopefully be in a therapeutic range for the endoscopy to occur tomorrow. The patient states that he feels fine. He is not experiencing any symptoms of stroke or other new findings. Related Data Home Medications Medication Instructions Recorded Confirmed nitroglycerin 0.4 mg sublingual 0.4 mg sublingual Q5M PRN 02/21/22 09/08/22 tablet calcium carbonate 600 mg-vitamin 1 tab PO 09/08/22 09/08/22 D3 10 mcg (400 unit) tablet cholecalciferol (vitamin D3) 125 125 mcg PO DAILY 09/08/22 09/08/22 mcg (5,000 unit) capsule liraglutide (weight loss) 3 mg/0.5 mg subcut 09/08/22 09/08/22 mL (18 mg/3 mL) subcut pen injector (Saxenda) multivitamin with iron 1 tab PO DAILY 09/08/22 09/08/22 Previous Rx's Medication Instructions Recorded blood pressure monitor #1 ea 05/15/22 omeprazole 40 mg capsule,delayed 40 mg PO DAILY #30 caps 05/15/22 release acetaminophen 500 mg tablet 1,000 mg (2 x 500 mg) PO QID PRN 05/28/22 pain #100 tabs cyclobenzaprine 10 mg tablet 10 mg PO TID PRN muscle spasm #30 06/17/22 tabs metoprolol tartrate 50 mg tablet 50 mg PO BID #180 tabs 06/17/22 sennosides 8.6 mg-docusate sodium 1 - 4 tab PO QHS #60 tabs 06/17/22 50 mg tablet (Senexon-S) sumatriptan succinate 100 mg tablet 100 mg PO .As Needed as needed PRN 06/17/22 migraine headache #9 tabs oxycodone 5 mg tablet 5 - 10 mg (1 - 2 x 5 mg) PO Q6H 07/15/22 PRN pain #60 tabs warfarin 2.5 mg tablet See Rx Instructions PO .COMPLEX 08/15/22 #180 tabs Allergies Allergy/AdvReac Type Severity Reaction Status Date / Time hydrocodone Allergy Verified 09/08/22 15:15 Penicillins Allergy Verified 09/08/22 15:15 Tetanus Vaccines and Toxoid Allergy Verified 09/08/22 15:15 Review of Systems Status of ROS: Reports: 10 or more systems reviewed and unremarkable except as noted in History and below Narrative: Constitutional: No fevers, no weight gain or loss. Eyes: No discharge. No vision changes. HENT: No congestion, no sore throat, no ear pain. Cardiovascular: No chest pain, no palpitations. Respiratory: No shortness of breath, no wheezes, no cough. Gastrointestinal: No abdominal pain, no vomiting, no diarrhea. Genitourinary: No dysuria, no hematuria. Musculoskeletal: Normal range of motion. Skin: No rashes, no pruritis. Neurological: No dizziness, weakness, sensory change, speech change. Endo/Heme/Allergies: No bruising or bleeding. No polydipsia. Pysch: no suicidality, no anxiety, no insomnia. All other systems reviewed and are negative. [facility] Medical History Atypical chest pain (04/16/22) ?R07.89 - Other chest pain (ICD-10) Calculus of kidney ?N20.0 - Calculus of kidney (ICD-10) Cocaine dependence in remission (01/20/15) ?F14.21 - Cocaine dependence, in remission (ICD-10) Hematuria ?R31.9 - Hematuria, unspecified (ICD-10) History of attention deficit hyperactivity disorder (ADHD) ?Z86.59 - Personal history of other mental and behavioral disorders (ICD-10) Insomnia (01/20/15) ?G47.00 - Insomnia, unspecified (ICD-10) Musculoskeletal back pain (04/16/22) ?M54.9 - Dorsalgia, unspecified (ICD-10) Plantar fasciitis, bilateral (12/22/13) ?M72.2 - Plantar fascial fibromatosis (ICD-10) Vitamin D deficiency (04/11/15) ?E55.9 - Vitamin D deficiency, unspecified (ICD-10) Surgical History History of arthroscopy of left knee ?Z98.890 - Other specified postprocedural states (ICD-10) History of colonoscopy (08/16/21) ?Z98.890 - Other specified postprocedural states (ICD-10) History of foot surgery ?Z98.890 - Other specified postprocedural states (ICD-10) History of open reduction and internal fixation (ORIF) procedure (2006) ?Z98.890 - Other specified postprocedural states (ICD-10) Family History Father Glaucoma Other Diabetes Social History Smoking Status: Never smoker Do you use any of these nicotine containing products: None Second hand tobacco smoke exposure: No How often do you have a drink containing alcohol: monthly or less AUDIT-C Alcohol total score: 1 Non-prescribed substance use: marijuana (any form) Little interest or pleasure in doing things: not at all Feeling down, depressed, or hopeless: not at all service: No Exam Narrative: Exam Narrative: Constitutional: Well-developed, well-nourished, no acute distress. HEENT: Normocephalic, atraumatic. Neck: Normal range of motion. Nontender. Supple. Heart: Intact distal pulses. Mechanical heart valve. Lungs: No chest discomfort. No wheezes, rhonchi, or rales. Abdomen: Nontender. Back: Normal range of motion. Extremities: Normal range of motion. No injury. Skin: Intact. No rash. Warm. No erythema or pallor. Neurologic: No altered sensation. No weakness. Alert and oriented. Psychiatric: No suicidality. No anxiety or depression. No insomnia. Nursing notes and vitals signs are reviewed. Const: Vital Signs, click to edit/add: Vital Signs - 24 hr 09/25/22 16:59 Temperature 97.6 F Pulse Rate [Right Pulse Oximeter] 83 Respiratory Rate 20 Blood Pressure [Ri ght Upper Arm] 142/79 H Pulse Oximetry 96 Oxygen Delivery Me thod Room Air Course Vital Signs Vital signs: Initial Vital Signs Temperature 97.6 F 09/25/22 16:59 Temperature Source Temporal Artery Scan 09/25/22 16:59 Pulse Rate 83 09/25/22 16:59 Respiratory Rate 20 09/25/22 16:59 Blood Pressure 142/79 H 09/25/22 16:59 Blood Pressure Mean 100 09/25/22 16:59 Blood Pressure Position Sitting 09/25/22 16:59 Pulse Oximetry 96 09/25/22 16:59 Oxygen Delivery Method Room Air 09/25/22 16:59 Vital Signs Temperature 97.6 F 09/25/22 16:59 Pulse Rate 83 09/25/22 16:59 Respiratory Rate 20 09/25/22 16:59 Blood Pressure 142/79 H 09/25/22 16:59 Pulse Oximetry 96 09/25/22 16:59 Oxygen Delivery Method Room Air 09/25/22 16:59 Temperature 97.6 F 09/25/22 16:59 Pulse Rate 83 09/25/22 16:59 Respiratory Rate 20 09/25/22 16:59 Blood Pressure 142/79 H 09/25/22 16:59 Pulse Oximetry 96 09/25/22 16:59 Oxygen Delivery Method Room Air 09/25/22 16:59 Medical Decision Making MDM Narrative Medical decision making narrative: This patient typically takes 5 mg every day to maintain an INR in the therapeutic range between 2.5 and 3.5. He took a 2.5 mg doses yesterday and is due to take 5 mg today. I advised him to take 7.5 mg as his INR is subth erapeutic today. This may bring him into a therapeutic range for the endoscopy to occur tomorrow. He will need to follow-up with them and they can proceed if he is in therapeutic range. Discharge Plan Discharge Clinical Impression: Subtherapeutic international normalized ratio (INR) Patient Disposition: Home, Self-Care Additional Instructions: Take 7.5 mg Coumadin this evening and follow-up with appointment as scheduled tomorrow for endoscopy. Prescriptions: No Action omeprazole 40 mg capsule,delayed release(DR/EC) 40 mg PO DAILY Qty: 30 11RF (DME) blood pressure monitor Kit See Rx Instructions .ROUTE .MEDSUPPLY Qty: 1 0RF Rx Instructions: As directed acetaminophen 500 mg tablet 1,000 mg PO QID PRN (Reason: pain) Qty: 100 4RF oxycodone 5 mg tablet 5 - 10 mg PO Q6H PRN (Reason: pain) Qty: 60 0RF nitroglycerin 0.4 mg tablet, sublingual 0.4 mg sublingual Q5M PRN cyclobenzaprine 10 mg tablet 10 mg PO TID PRN (Reason: muscle spasm) Qty: 30 5RF sumatriptan succinate 100 mg tablet 100 mg PO .As Needed as needed PRN (Reason: migraine headache) Qty: 9 6RF Rx Instructions: ONE TAB AT ONSET OF HEADACHE, MAY REPEAT ONCE IN 2 HRS, MAX 200 MG/24 HRS sennosides-docusate sodium [Senexon-S] 8.6-50 mg tablet 1 - 4 tab PO QHS Qty: 60 2RF metoprolol tartrate 50 mg tablet 50 mg PO BID Qty: 180 3RF Saxenda 3 mg/0.5 mL (18 mg/3 mL) pen injector subcut cholecalciferol (vitamin D3) 125 mcg (5,000 unit) capsule 125 mcg PO DAILY multivitamin with iron Tablet 1 tab PO DAILY calcium carbonate-vitamin D3 600 mg-10 mcg (400 unit) tablet 1 tab PO warfarin 2.5 mg tablet See Rx Instructions PO .COMPLEX Qty: 180 0RF Protocol: Dose Management Condition: Thursday Dose/Route: 5 mg Instruction: 2 x 2.5 mg tablets Condition: Thursday Dose/Route: 7.5 mg Instruction: 3 x 2.5 mg tablets Condition: Thursday Dose/Route: 5 mg Instruction: 2 x 2.5 mg tablets Condition: Thursday Dose/Route: 5 mg Instruction: 2 x 2.5 mg tablets Condition: Dose/Route: 7.5 mg Instruction: 3 x 2.5 mg tablets Condition: Thursday Dose/Route: 5 mg Instruction: 2 x 2.5 mg tablets Condition: Thursday Dose/Route: 5 mg Instruction: 2 x 2.5 mg tablets Protocol Text: Adjustment Start Date: Thursday08/19/22 INR Value: 3.2 INR Date: 08/05/22 Recheck Date: 09/18/22 Rx Instructions: Take 7.5 mg by mouth twice weekly. Take 5 mg by mouth the rest of the week. Follow Up/Referrals: Mitul Wayne MD [Primary Care Provider] - Stand Alone Forms: [employer] Info Instructions
== END 2022-09-25 17:48 | disposition home or self-care (01) ==
PROVIDERS: Emergency Provider Emergency Medicine Emergency Medical Services; PCP Family Medicine
DX: D68.8 Other specified coagulation defects (principal)
CPT/HCPCS: 99282; 99283; 99284

== ENCOUNTER 2023-11-23 14:50 | Emergency (ER) | payer BC, SELFPAY ==
[2023-11-23] VITALS (13 sets, daily range): BP systolic 116–147; BP diastolic 69–103; PULSE 62–81; RESP 20; TEMP 36.3; O2SAT 91–96; BMI 41.8
--- NOTE | 2023-11-23 14:59 | ED_ITS ---
HPI - General Adult General Chief complaint: Chest Pain Stated complaint: Chest pain Time Seen by Provider: 11/23/23 14:55 History of Present Illness HPI narrative: Pt has had on/ off chest pains since 9am. Pains last about 15-20 mins. Pain is bilateral chest under the ribcage. Pains have been coming while pt is at rest. Pt endorses mild SOB. 53-year-old man presenting to the emergency department with complaint of chest pain that is occurred now about 4 times initial and latest probably most intense lasting about 15-20 minutes. Indicates a sharp cramping intermittent pressure bilateral anterolateral lower chest/abdominal interface as gestured. Kind of describes it as a spasm at 1 point. Has been working outside per usual it is apply bit. We had whacking in particular today. 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 He notes that he takes care to maintain hydration. No cardiac disease. Is anticoagulated with a history of aortic valve replacement. Does have diabetes. Related Data Home Medications ?Medication ?Instructions ?Recorded ?Confirmed nitroglycerin 0.4 mg sublingual 0.4 mg sublingual Q5M PRN 02/21/22 11/23/23 tablet calcium carbonate 600 mg-vitamin 1 tab PO 09/08/22 11/12/22 D3 10 mcg (400 unit) tablet cholecalciferol (vitamin D3) 125 125 mcg PO DAILY 09/08/22 11/12/22 mcg (5,000 unit) capsule multivitamin with iron 1 tab PO DAILY 09/08/22 11/12/22 Previous Rx's ?Medication ?Instructions ?Recorded blood pressure monitor #1 ea 05/15/22 omeprazole 40 mg capsule,delayed 40 mg PO DAILY #30 caps 05/15/22 release acetaminophen 500 mg tablet 1,000 mg (2 x 500 mg) PO QID PRN 05/28/22 pain #100 tabs cyclobenzaprine 10 mg tablet 10 mg PO TID PRN muscle spasm #30 06/17/22 tabs sennosides 8.6 mg-docusate sodium 1 - 4 tab PO QHS #60 tabs 06/17/22 50 mg tablet (Senexon-S) sumatriptan succinate 100 mg tablet 100 mg PO .As Needed as needed PRN 06/17/22 migraine headache #9 tabs warfarin 2.5 mg tablet See Rx Instructions PO .COMPLEX 10/24/22 #90 tabs Allergies Allergy/AdvReac Type Severity Reaction Status Date / Time hydrocodone Allergy Verified 11/12/22 14:23 Penicillins Allergy Verified 11/12/22 14:23 Tetanus Vaccines and Toxoid Allergy Verified 11/12/22 14:23 Review of Systems Status of ROS: Reports: 6 or more systems reviewed and unremarkable except as noted in History and below [facility] Medical History Hematuria ?R31.9 - Hematuria, unspecified (ICD-10) Musculoskeletal back pain (04/16/22) ?M54.9 - Dorsalgia, unspecified (ICD-10) Atypical chest pain (04/16/22) ?R07.89 - Other chest pain (ICD-10) Vitamin D deficiency (04/11/15) ?E55.9 - Vitamin D deficiency, unspecified (ICD-10) Plantar fasciitis, bilateral (12/22/13) ?M72.2 - Plantar fascial fibromatosis (ICD-10) Insomnia (01/20/15) ?G47.00 - Insomnia, unspecified (ICD-10) History of attention deficit hyperactivity disorder (ADHD) ?Z86.59 - Personal history of other mental and behavioral disorders (ICD-10) Cocaine dependence in remission (01/20/15) ?F14.21 - Cocaine dependence, in remission (ICD-10) Calculus of kidney ?N20.0 - Calculus of kidney (ICD-10) Surgical History History of colonoscopy (08/16/21) ?Z98.890 - Other specified postprocedural states (ICD-10) History of open reduction and internal fixation (ORIF) procedure (2006) ?Z98.890 - Other specified postprocedural states (ICD-10) History of foot surgery ?Z98.890 - Other specified postprocedural states (ICD-10) History of arthroscopy of left knee ?Z98.890 - Other specified postprocedural states (ICD-10) Family History Father Glaucoma Other Diabetes Social History Smoking Status: Never smoker Do you use any of these nicotine containing products: None Second hand tobacco smoke exposure: No How often do you have a drink containing alcohol: monthly or less AUDIT-C Alcohol total score: 1 Non-prescribed substance use: marijuana (any form) Little interest or pleasure in doing things: not at all Feeling down, depressed, or hopeless: not at all service: No Exam Narrative: Exam Narrative: Pleasant. NAD. Skin is warm and dry. No rashes. Breathing easily. Lungs are clear. Not splinting. Heart with regular rate and rhythm with accentuated S2 consistent with valve replacement. Click is audible without auscultation. No reproducible pain to palpation over the chest. Pain is described seems to be at the edge of the rib margin and into the abdominal wall musculature. Not particularly reproducible here either at this time. Extremities are well perfused. Strong and equal upper extremity pulses. No edema. Transitioning to sitting and later out of bed without apparent difficulty either. Abdomen is obese and nontender Const: Vital Signs, click to edit/add: Vital Signs - 24 hr 11/23/23 14:57 11/23/23 15:16 11/23/23 15:30 Temperature 97.3 F L Pulse Rate 75 76 Pulse Rate [Pulse Oximeter] 81 Respiratory Rate 20 Blood Pressure Blood Pressure [Le ft Upper Arm] 147/85 H Pulse Oximetry 95 95 94 [facility] 11/23/23 15:32 11/23/23 15:33 11/23/23 16:00 Temperature Pulse Rate 76 75 69 Pulse Rate [Pulse Oximeter] Respiratory Rate Blood Pressure 123/81 Blood Pressure [Le ft Upper Arm] Pulse Oximetry 94 94 93 [facility] 11/23/23 16:02 11/23/23 16:03 11/23/23 16:30 Temperature Pulse Rate 68 72 64 Pulse Rate [Pulse Oximeter] Respiratory Rate Blood Pressure 116/69 Blood Pressure [Le ft Upper Arm] Pulse Oximetry 94 94 94 [facility] 11/23/23 16:32 11/23/23 17:00 11/23/23 17:02 Temperature Pulse Rate 62 63 66 Pulse Rate [Pulse Oximeter] Respiratory Rate Blood Pressure 127/73 119/103 H Blood Pressure [Le ft Upper Arm] Pulse Oximetry 91 95 93 Oxygen Delivery Ri thod Documenting provider has reviewed patient's vital signs: yes Course Vital Signs Vital signs: Initial Vital Signs Temperature 97.3 F L 11/23/23 14:57 Temperature Source Temporal Artery Scan 11/23/23 14:57 Pulse Rate 81 11/23/23 14:57 Respiratory Rate 20 11/23/23 14:57 Blood Pressure 147/85 H 11/23/23 14:57 Blood Pressure Mean 105 11/23/23 14:57 Blood Pressure Position Supine 11/23/23 14:57 Pulse Oximetry 95 11/23/23 14:57 Oxygen Delivery Method Room Air 11/23/23 14:57 Vital Signs Temperature 97.3 F L 11/23/23 14:57 Pulse Rate 81 11/23/23 14:57 Respiratory Rate 20 11/23/23 14:57 Blood Pressure 147/85 H 11/23/23 14:57 Pulse Oximetry 95 11/23/23 14:57 Oxygen Delivery Method Room Air 11/23/23 14:57 Temperature 97.3 F L 11/23/23 14:57 Pulse Rate 62 11/23/23 17:03 Respiratory Rate 20 11/23/23 14:57 Blood Pressure 119/103 H 11/23/23 17:02 Pulse Oximetry 96 11/23/23 17:03 Oxygen Delivery Method Room Air 11/23/23 14:57 Medical Decision Making MDM Narrative Medical decision making narrative: History of diabetes does leave concern of cardiovascular event though in the area of discomfort seems more to be musculoskeletal. I suppose could be gallbladder disease but does not probably translate to the pain on the left side. He does recall similar pains prior to needing the aortic valve replaced. Perhaps this is radiating from the back. Dissection? Pain not present currently. Does not appear to be really anginal in nature. Arrhythmia? Did do a chest x-ray. Reviewed by me appears normal postoperative. Evidence of mechanical valve. No infiltrate. Lower chest pain, [id number], intermittent. TECHNIQUE: Chest 1 portable view. COMPARISON: 06/10/2022. FINDINGS: No pneumothorax or pleural effusion. Lungs are clear. Median sternotomy, as before. Cardiac and mediastinal contours are stable. Upper abdomen and osseous structures as imaged show no acute abnormality. IMPRESSION: No evidence of acute cardiopulmonary disease. Labs are reassuring including repeated troponin. Normal D-dimer suggests against dissection. INR he says is in goal for him No further pain events. No events on monitor. See patient discharge plan for further discussion Medical Records Medical records reviewed: Yes I reviewed the patient's medical records Lab Data Lab results reviewed: Yes I reviewed the patient's lab results Labs: Lab Results 11/23/23 11/23/23 Range/Units 15:03 16:55 WBC 13.51 H (4.50-11.00) K/uL RBC 5.91 H (4.30-5.90) m/uL Hgb 16.4 (13.5-17.5) gm/dL Hct 49.9 (37.0-53.0) % MCV 84 (80-100) fL MCH 28 (26-34) pg MCHC 33 (32-36) gm/dL RDW Coeff of Karina 12.9 (11.5-15.5) % Plt Count 212 (140-440) K/uL Neut % (Auto) 81.3 H (42.0-72.0) % Lymph % (Auto) 12.0 L (20-44) % [place] % (Auto) 5.6 (0.0-11.0) % Eos % (Auto) 0.8 (0.0-7.0) % Baso % (Auto) 0.1 (0.0-3.0) % Neut # (Auto) 11.00 H (1.7-7.0) K/uL Lymph # (Auto) 1.60 (0.90-2.90) K/uL [place] # (Auto) 0.80 (0.00-0.90) K/UL Eos # (Auto) 0.10 (0.00-0.50) K/uL Baso # (Auto) 0.00 (0.00-0.30) K/uL Abs Immat Gran (auto) 0.00 (0.00-0.30) K/uL Imm/Tot Granulo (auto) 0.2 % INR 2.04 H (0.91-1.10) D-Dimer Quant (PE/DVT) 0.23 (0.00-0.50) ug/ml Sodium 137 (135-149) mmol/L Potassium 4.1 (3.6-5.1) mmol/L Chloride 100 (96-114) mmol/L Carbon Dioxide 27 (20-32) mmol/L Anion Gap 10 (7-15) mEq/L BUN 23 (7-30) mg/dL Creatinine 0.8 (0.5-1.5) mg/dL Estimated Creat Clear 111.12 Estimated GFR 105 ml/min Glucose 172 H (60-115) mg/dL Calcium 9.4 (8.4-10.6) mg/dL Magnesium 1.9 (1.5-2.6) mg/dL Troponin I < 0.01 L (0.01-0.04) ng/mL C-Reactive Protein 1.0 (0.5-1.0) mg/dL NT-Pro-B Natriuret Pep 95 pg/mL POC Troponin I 0.00 L 0.00 L (0.01-0.04) ng/ml ECG Data Attestation: I personally reviewed and interpreted this ECG as follows: (Normal sinus rhythm. No ischemic changes. Rate of 84) Discharge Plan Discharge Clinical Impression: Atypical chest pain Patient Disposition: Home, Self-Care Condition: Stable Additional Instructions: Sounds like you are doing a good job of staying hydrated. Try to incorporate in a daily stretching regimen. You are doing some stressed repetitive movements that could contribute to pain. I can certainly understand your concern regarding these pains today. Thankfully your evaluation was reassuring. Return/be seen for return of persistent symptoms, particularly if associated with lightheadedness, nausea, unusual diaphoresis. Consider follow-up with your clinic or primary care provider for further workup; see if you are due for further cardiac evaluation. Prescriptions: No Action omeprazole 40 mg capsule,delayed release(DR/EC) 40 mg PO DAILY Qty: 30 11RF (DME) blood pressure monitor Kit See Rx Instructions .ROUTE .MEDSUPPLY Qty: 1 0RF Rx Instructions: As directed acetaminophen 500 mg tablet 1,000 mg PO QID PRN (Reason: pain) Qty: 100 4RF nitroglycerin 0.4 mg tablet, sublingual 0.4 mg sublingual Q5M PRN cyclobenzaprine 10 mg tablet 10 mg PO TID PRN (Reason: muscle spasm) Qty: 30 5RF sumatriptan succinate 100 mg tablet 100 mg PO .As Needed as needed PRN (Reason: migraine headache) Qty: 9 6RF Rx Instructions: ONE TAB AT ONSET OF HEADACHE, MAY REPEAT ONCE IN 2 HRS, MAX 200 MG/24 HRS sennosides-docusate sodium [Senexon-S] 8.6-50 mg tablet 1 - 4 tab PO QHS Qty: 60 2RF cholecalciferol (vitamin D3) 125 mcg (5,000 unit) capsule 125 mcg PO DAILY multivitamin with iron Tablet 1 tab PO DAILY calcium carbonate-vitamin D3 600 mg-10 mcg (400 unit) tablet 1 tab PO warfarin 2.5 mg tablet See Rx Instructions PO .COMPLEX Qty: 90 0RF Protocol: Dose Management Condition: Thursday Dose/Route: 5 mg Instruction: 2 x 2.5 mg tablets Condition: Thursday Dose/Route: 2.5 mg Instruction: 1 x 2.5 mg tablet Condition: Thursday Dose/Route: 5 mg Instruction: 2 x 2.5 mg tablets Condition: Thursday Dose/Route: 2.5 mg Instruction: 1 x 2.5 mg tablet Condition: Dose/Route: 5 mg Instruction: 2 x 2.5 mg tablets Condition: Thursday Dose/Route: 7.5 mg Instruction: 3 x 2.5 mg tablets Condition: Thursday Dose/Route: 7.5 mg Instruction: 3 x 2.5 mg tablets Protocol Text: Adjustment Start Date: Thursday09/26/22 INR Value: 2.0 INR Date: 09/25/22 Recheck Date: 09/29/22 Rx Instructions: Take 5 mg (2 tabs) by mouth daily` Follow Up/Referrals: Mitul Wayne MD [Primary Care Provider] - Stand Alone Forms: [employer] Info Instructions
--- NOTE | 2023-11-23 15:11 | CRLHL7_ITS ---
For Patients: As a result of the Century Cures Act, medical imaging exams and procedure reports are released immediately into your electronic medical record. You may view this report before your referring provider. If you have questions, please contact your health care provider. INDICATION: Lower chest pain, [id number], intermittent. TECHNIQUE: Chest 1 portable view. COMPARISON: 06/10/2022. FINDINGS: No pneumothorax or pleural effusion. Lungs are clear. Median sternotomy, as before. Cardiac and mediastinal contours are stable. Upper abdomen and osseous structures as imaged show no acute abnormality. IMPRESSION: No evidence of acute cardiopulmonary disease. Dictated by Robbi Rinaldi MD @ 11/23/2023 3:41:12 PM (Electronically Signed)
[2023-11-23 15:30] LABS: Basophils Percent Auto 0.1 % (0.0-3.0); Eosinophils Percent Auto 0.8 % (0.0-7.0); Hematocrit 49.9 % (37.0-53.0); Hemoglobin* 16.4 gm/dL (13.5-17.5); Immature Granulocytes Pct Auto 0.2 %; Mean Corpuscular HGB Conc 33 gm/dL (32-36); Mean Corpuscular Hemoglobin 28 pg (26-34); Mean Corpuscular Volume 84 fL (80-100); Monocytes Percent Auto 5.6 % (0.0-11.0); Neutrophils Percent Auto 81.3 % (42.0-72.0); Platelet Count* 212 K/uL (140-440); RDW Coefficient of Variation % 12.9 % (11.5-15.5); Red Blood Count 5.91 m/uL (4.30-5.90); White Blood Count* 13.51 K/uL (4.50-11.00)
[2023-11-23 15:37] LABS: Slide Review Reflex No
[2023-11-23 15:54] LABS: Chloride* 100 mmol/L (96-114); Sodium* 137 mmol/L (135-149)
[2023-11-23 15:55] LABS: Potassium* 4.1 mmol/L (3.6-5.1)
[2023-11-23 15:57] LABS: Anion Gap 10 mEq/L (7-15); Blood Urea Nitrogen* 23 mg/dL (7-30); Carbon Dioxide* 27 mmol/L (20-32); Creatinine* 0.8 mg/dL (0.5-1.5); Est. Creatinine Clearance* 111.12; Estimated Glomerular Filt Rate 105 ml/min
[2023-11-23 15:58] LABS: Calcium* 9.4 mg/dL (8.4-10.6); Glucose* 172 mg/dL (60-115); INR 2.04 (0.91-1.10); Magnesium* 1.9 mg/dL (1.5-2.6); Prothrombin Time 24.5 Seconds
[2023-11-23 16:22] LABS: NT Pro B Type NatriureticPept* 95 pg/mL; Troponin I* < 0.01 ng/mL (0.01-0.04)
[2023-11-23 16:45] LABS: D Dimer Quantitative* 0.23 ug/ml (0.00-0.50)
== END 2023-11-23 17:38 | disposition home or self-care (01) ==
PROVIDERS: Emergency Provider Family Medicine; PCP Family Medicine
DX: R07.9 Chest pain, unspecified (principal)
CPT/HCPCS: 36415; 71045; 80048; 83735; 83880; 84484; 85025; 85379; 85610; 86140; 93005; 99284